=== PATIENT | male | born 1970 | race Two or more races ===

== ENCOUNTER 2016-09-23 | Outpatient (CLI) | payer MEDICAID | END 2016-09-23 15:45 | disposition home or self-care (01) | DX: R00.2 Palpitations (principal) ==

== ENCOUNTER 2016-10-11 11:42 | Emergency (ER) | payer MEDICAID ==
[2016-10-11] MEDS ORDERED: traMADol 50 MG TABLET PO STA (13:47)
[2016-10-11] MEDS ORDERED: traMADol 50 MG TABLET PO ONE (13:50)
== END 2016-10-11 14:02 | disposition home or self-care (01) ==
DX: M75.82 Other shoulder lesions, left shoulder (principal); R03.0 Elevated blood-pressure reading, without diagnosis of hypertension; E66.01 Morbid (severe) obesity due to excess calories; Z68.44 Body mass index [BMI] 60.0-69.9, adult

== ENCOUNTER 2016-10-19 20:04 | Outpatient (CLI) | payer MEDICAID | END 2016-10-19 20:05 | disposition home or self-care (01) | DX: R00.2 Palpitations (principal) ==

== ENCOUNTER 2016-11-14 12:46 | Outpatient (CLI) | payer MEDICAID | END 2016-11-14 12:47 | disposition home or self-care (01) | DX: Z85.850 Personal history of malignant neoplasm of thyroid (principal); Z98.890 Other specified postprocedural states ==

== ENCOUNTER 2017-01-02 14:30 | Outpatient (CLI) | payer MEDICAID | END 2017-01-02 14:31 | disposition home or self-care (01) | DX: G47.30 Sleep apnea, unspecified (principal); G47.8 Other sleep disorders; R06.83 Snoring; G47.10 Hypersomnia, unspecified ==

== ENCOUNTER 2017-02-07 14:36 | Outpatient (CLI) | payer MEDICAID ==
[2017-02-07 19:40] LABS: BILIRUBIN,TOTAL 0.6 mg/dL (0.2-1.0); BUN - BLOOD UREA NITROGEN 16 mg/dL (6-20); CARBON DIOXIDE - CO2 26 mmol/L (21-32); CHLORIDE 102 mmol/L (101-111); CHOL/HDL RATIO 4.5 (<5.0); CHOLESTEROL 156 mg/dL; CREATININE 0.8 mg/dL (0.6-1.2); GFR - MDRD 103 (>89); GLUCOSE 91 mg/dL (70-100); HDL CHOLESTEROL 35 mg/dL; MAGNESIUM 2.1 mg/dL (1.7-2.8); POTASSIUM 3.9 mmol/L (3.5-5.0); SODIUM 137 mmol/L (135-145); TOTAL PROTEIN 7.6 g/dL (6.7-8.2); TRIGLYCERIDES 81 mg/dL; VLDL CHOLESTEROL 16 mg/dL
[2017-02-07 19:52] LABS: BASOPHILS % (AUTO) 0.4 %; EOSINOPHILS # (AUTO) 0.1 10^3/uL (0.0-0.7); EOSINOPHILS % (AUTO) 1.3 %; HGB - HEMOGLOBIN 13.1 g/dL (14.0-18.0); LYMPHOCYTES # (AUTO) 2.6 10^3/uL (1.5-3.5); LYMPHOCYTES % (AUTO) 23.9 %; MEAN PLATELET VOLUME 9.3 fL (7.4-11.4); MONOCYTES % (AUTO) 8.8 %; NEUTROPHILS # (AUTO) 7.2 10^3/uL (1.5-6.6); NEUTROPHILS % (AUTO) 65.6 %; RED BLOOD COUNT 5.46 10^6/uL (4.70-6.10); RED CELL DISTRIBUTION WIDTH 16.1 % (12.0-15.0)
== END 2017-02-07 14:37 | disposition home or self-care (01) ==
LOC: LAB.N 14:36
PROVIDERS: ATTEND Internal Medicine Cardiovascular Disease
DX: I10 Essential (primary) hypertension (principal)
CPT/HCPCS: 36415; 80053; 80061; 83735; 84443; 85025

== ENCOUNTER 2017-03-03 15:55 | Outpatient (CLI) | payer MEDICAID ==
--- NOTE | 2017-03-04 00:01 | XRAY Report ---
EXAMS: BILATERAL FEET AND ANKLES EXAM DATE: 03/03/2017 04:18 PM. CLINICAL HISTORY: ANKLE/FOOT BILATERAL PAIN. COMPARISON: None. TECHNIQUE: 3 views each foot and ankle. FINDINGS: Right: Bones: Possible shrapnel within the middle phalanx of the right middle toe, presumably chronic. No ac [place] fractures or bone lesions. Right plantar calcaneal spur. Joints: Mild degenerative changes in the ankle.. No subluxations. Soft Tissues: Forefoot soft tissue swelling over the metatarsals. Left: Bones: Normal. No fractures or bone lesions. Joints: Mild degenerative changes in the ankle. No subluxations. Soft Tissues: Normal. No soft tissue swelling. IMPRESSION: 1. No acute osseous abnormality seen in either foot or ankle. 2. Right forefoot soft tissue swelling over the distal metatarsal region. 3. Mild degenerative changes in both ankles. 4. Possible shrapnel within the middle phalanx of the right middle toe, presumably chronic. [facility] Referring Provider Line: [phone] SITE ID: [id number]
--- NOTE | 2017-03-04 00:01 | XRAY Report ---
EXAMS: BILATERAL FEET AND ANKLES EXAM DATE: 03/03/2017 04:18 PM. CLINICAL HISTORY: ANKLE/FOOT BILATERAL PAIN. COMPARISON: None. TECHNIQUE: 3 views each foot and ankle. FINDINGS: Right: Bones: Possible shrapnel within the middle phalanx of the right middle toe, presumably chronic. No ac [place] fractures or bone lesions. Right plantar calcaneal spur. Joints: Mild degenerative changes in the ankle.. No subluxations. Soft Tissues: Forefoot soft tissue swelling over the metatarsals. Left: Bones: Normal. No fractures or bone lesions. Joints: Mild degenerative changes in the ankle. No subluxations. Soft Tissues: Normal. No soft tissue swelling. IMPRESSION: 1. No acute osseous abnormality seen in either foot or ankle. 2. Right forefoot soft tissue swelling over the distal metatarsal region. 3. Mild degenerative changes in both ankles. 4. Possible shrapnel within the middle phalanx of the right middle toe, presumably chronic. [facility] Referring Provider Line: [phone] SITE ID: [id number]
== END 2017-03-03 15:56 | disposition home or self-care (01) ==
LOC: DI.N 15:55
PROVIDERS: ATTEND Family Medicine
DX: M19.072 Primary osteoarthritis, left ankle and foot (principal); M19.071 Primary osteoarthritis, right ankle and foot; R22.41 Localized swelling, mass and lump, right lower limb

== ENCOUNTER 2017-07-13 14:45 | Outpatient (CLI) | payer MEDICAID ==
[2017-07-13 13:08] LABS: BASOPHILS # (AUTO) 0.1 10^3/uL (0.0-0.1); BASOPHILS % (AUTO) 0.7 %; EOSINOPHILS # (AUTO) 0.3 10^3/uL (0.0-0.7); HCT - HEMATOCRIT 40.3 % (42.0-52.0); LYMPHOCYTES # (AUTO) 2.7 10^3/uL (1.5-3.5); LYMPHOCYTES % (AUTO) 20.8 %; MEAN CORPUSCULAR HEMOGLOBIN 24.1 pg (27.0-31.0); MEAN CORPUSCULAR HGB CONC 32.3 g/dL (32.0-36.0); MEAN CORPUSCULAR VOLUME 74.6 fL (80.0-94.0); MEAN PLATELET VOLUME 9.1 fL (7.4-11.4); MONOCYTES # (AUTO) 1.1 10^3/uL (0.0-1.0); MONOCYTES % (AUTO) 8.7 %; NEUTROPHILS # (AUTO) 8.7 10^3/uL (1.5-6.6); NEUTROPHILS % (AUTO) 67.8 %; RED CELL DISTRIBUTION WIDTH 15.9 % (12.0-15.0); UNCORRECTED WHITE BLOOD COUNT 12.9 x10^3/uL; WHITE BLOOD COUNT 12.9 x10^3/uL (4.8-10.8)
[2017-07-13 13:26] LABS: BILIRUBIN,TOTAL 0.5 mg/dL (0.2-1.0); BUN - BLOOD UREA NITROGEN 17 mg/dL (6-20); CALCIUM 8.7 mg/dL (8.5-10.3); CARBON DIOXIDE - CO2 23 mmol/L (21-32); CHLORIDE 106 mmol/L (101-111); CREATININE 0.7 mg/dL (0.6-1.2); GFR - MDRD 120 (>89); GLUCOSE 102 mg/dL (70-100); POTASSIUM 4.2 mmol/L (3.5-5.0); SODIUM 137 mmol/L (135-145); TOTAL PROTEIN 7.6 g/dL (6.7-8.2)
[2017-07-13 13:38] LABS: THYROID STIMULATING HORMONE < 0.08 uIU/mL (0.34-5.60)
[2017-07-13 13:46] LABS: HEMOGLOBIN A1C 0.55 g/dL
== END 2017-07-13 14:46 | disposition home or self-care (01) ==
LOC: LAB.N 14:45
PROVIDERS: ATTEND Physician Assistant Medical
DX: R20.0 Anesthesia of skin (principal); N52.9 Male erectile dysfunction, unspecified; E66.9 Obesity, unspecified; E89.0 Postprocedural hypothyroidism
CPT/HCPCS: 36415; 80053; 83036; 84403; 84439; 84443; 85025

== ENCOUNTER 2017-08-25 13:33 | Outpatient (CLI) | payer MEDICAID ==
[2017-08-25 18:55] LABS: IMMATURE RETIC FRACTION 0.39; RED BLOOD COUNT 5.23 10^6/uL (4.70-6.10)
[2017-08-25 19:45] LABS: IRON 44 ug/dL (45-182); TOTAL IRON BINDING CAPACITY 302 ug/dL (250-450); TRANSFERRIN 216 mg/dL (180-329)
== END 2017-08-25 13:34 | disposition home or self-care (01) ==
LOC: LAB.N 13:33
PROVIDERS: ATTEND Physician Assistant Medical
DX: D64.9 Anemia, unspecified (principal)
CPT/HCPCS: 36415; 82728; 83540; 84466; 85044

== ENCOUNTER 2017-09-18 13:29 | Emergency (ER) | payer MEDICAID ==
[2017-09-18 13:37] VITALS: BP 154/78
[2017-09-18] MEDS ORDERED: IBUPROFEN 800 MG TABLET PO STA (13:49)
--- NOTE | 2017-09-18 13:51 | ED Physician Documentation ---
PD HPI LOWER EXT INJURY - Stated complaint Stated Complaint: L ANKLE PX - Chief complaint Chief Complaint: Ext Problem - History obtained from History obtained from: Patient - History of Present Illness PD HPI LOW EXT INJURY LOCATION: Other (Without specific injury he developed medial and anterior left ankle pain starting yesterday morning that hurts more when he is trying to walk but is still painful at rest. Says he had a similar episode in the other ankle about 3 years ago without a specific diagnosis. There was no injury. No fevers.) Review of Systems Constitutional: denies: Fever, Chills Respiratory: reports: Reviewed and negative GI: reports: Reviewed and negative : reports: Reviewed and negative PD PAST MEDICAL HISTORY - Past Medical History Past Medical History: Yes Cardiovascular: Hypertension Respiratory: Asthma Neuro: None Psych: Anxiety Musculoskeletal: Osteoarthritis, Chronic back pain, Other - Past Surgical History Past Surgical History: Yes - Present Medications Home Medications: Ambulatory Orders Medication Instructions Recorded Confirmed Liothyronine [Cytomel] 2 mg PO DAILY 07/25/15 09/18/17 Levothyroxine [Synthroid] 275 mcg PO DAILY 10/11/16 09/18/17 Cyclobenzaprine [Flexeril] 10 mg PO BID PRN 09/18/17 09/18/17 Meloxicam [Mobic] 7.5 mg PO BIDWM PRN #15 tablet 09/18/17 - Allergies Allergies/Adverse Reactions: Allergies Allergy/AdvReac Type Severity Reaction Status Date / Time hydrocodone Allergy Unknown Verified 09/18/17 13:39 morphine Allergy Unknown Verified 09/18/17 13:39 oxycodone Allergy Unknown Verified 09/18/17 13:39 - Social History Does the pt smoke?: No Smoking Status: Never smoker Does the pt drink ETOH?: No Does the pt have substance abuse?: No - Immunizations Immunizations are current?: Yes - POLST Patient has POLST: No PD ED PE NORMAL - Vitals Vital signs reviewed: Yes - General General: Alert and oriented X 3, No acute distress - Extremities Extremities: Other (Left ankle is not warm or red, he is tender to the medial malleolus, no calf tenderness or swelling. Mild anterior joint line tenderness , no lateral tenderness or tenderness over the calcaneus or Achilles. Passive range of motion is relatively but not completely painless.) - Neuro Neuro: Alert and oriented X 3, Normal speech Results - Vitals Vitals: Vital Signs - 24 hr 09/18/17 13:32 Temperature 36.2 C L Heart Rate 80 Respiratory 19 Rate Blood Pressure 154/78 H O2 Saturation 98 Oxygen O2 Source Room air - Labs Labs: Laboratory Tests 09/18/17 09/18/17 14:10 14:10 WBC 13.9 H RBC 5.36 Hgb 13.1 L Hct 40.2 L MCV 75.0 L MCH 24.4 L MCHC 32.5 RDW 15.5 H Plt Count 209 MPV 8.4 Neut # 10.3 H Lymph # 2.3 [place] # 1.1 H Eos # 0.2 Baso # 0.1 Absolute Nucleated RBC 0.00 Nucleated RBC % 0.0 Sodium 139 Potassium 3.8 Chloride 101 Carbon Dioxide 29 Anion Gap 9.0 BUN 15 Creatinine 0.8 Estimated GFR (MDRD) 103 Glucose 102 H Uric Acid 7.3 H Calcium 8.9 Total Bilirubin 0.7 AST 23 ALT 29 Alkaline Phosphatase 55 Total Protein 8.1 Albumin 4.0 Globulin 4.1 Albumin/Globulin Ratio 1.0 Lipase 22 - Rads (name of study) 3v L ankle Radiology: EMP read contemporaneously (Degenerative changes without fracture) PD MEDICAL DECISION MAKING - ED course ED course: 46-year-old gentleman presents with unexplained 36 hours of left ankle pain. Clinically not really consistent with a septic joint and he is afebrile. Could be gout, he is a mildly elevated uric acid. Note made of the leukocytosis. I was discussing that with the patient and potentially an arthrocentesis which he refused noting that he has a chronic leukocytosis and looking back at old records that is certainly true. He understands that if he worsens or runs a fever he will need to return for reevaluation. Departure - Departure Disposition: Home, Self Care Clinical Impression: Left ankle pain Qualifiers: Chronicity: acute Qualified Code(s): M25.572 - Pain in left ankle and joints of left foot Condition: Good Record reviewed to determine appropriate education?: Yes Follow-Up: [facility] [Provider Group] Prescriptions: Meloxicam [Mobic] 7.5 mg PO BIDWM PRN #15 tablet PRN Reason: Pain Comments: As discussed, return immediately if you worsen or run a fever.
[2017-09-18 14:16] LABS: BASOPHILS # (AUTO) 0.1 10^3/uL (0.0-0.1); BASOPHILS % (AUTO) 0.4 %; EOSINOPHILS # (AUTO) 0.2 10^3/uL (0.0-0.7); EOSINOPHILS % (AUTO) 1.1 %; HGB - HEMOGLOBIN 13.1 g/dL (14.0-18.0); LYMPHOCYTES # (AUTO) 2.3 10^3/uL (1.5-3.5); LYMPHOCYTES % (AUTO) 16.8 %; MEAN CORPUSCULAR HEMOGLOBIN 24.4 pg (27.0-31.0); MEAN CORPUSCULAR HGB CONC 32.5 g/dL (32.0-36.0); MEAN PLATELET VOLUME 8.4 fL (7.4-11.4); MONOCYTES # (AUTO) 1.1 10^3/uL (0.0-1.0); MONOCYTES % (AUTO) 7.9 %; NEUTROPHILS # (AUTO) 10.3 10^3/uL (1.5-6.6); NEUTROPHILS % (AUTO) 73.8 %; PLT - PLATELET COUNT 209 10^3/uL (130-450); RED BLOOD COUNT 5.36 10^6/uL (4.70-6.10); RED CELL DISTRIBUTION WIDTH 15.5 % (12.0-15.0); WHITE BLOOD COUNT 13.9 x10^3/uL (4.8-10.8)
[2017-09-18 14:28] LABS: BILIRUBIN,TOTAL 0.7 mg/dL (0.2-1.0); CALCIUM 8.9 mg/dL (8.5-10.3); CREATININE 0.8 mg/dL (0.6-1.2); TOTAL PROTEIN 8.1 g/dL (6.7-8.2); URIC ACID 7.3 mg/dL (2.6-7.2)
--- NOTE | 2017-09-18 14:29 | XRAY Report ---
EXAM: LEFT ANKLE RADIOGRAPHY EXAM DATE: 09/18/2017 02:06 PM. CLINICAL HISTORY: Ankle pain. COMPARISON: 03/03/2017. TECHNIQUE: 3 views. FINDINGS: Bones: No acute fracture. Joints: There is pes planus. Similar to previous. Soft Tissues: There is a moderate degree of ossification located posterior to the talus. There is spu rring of the midfoot. There is diffuse soft tissue swelling. IMPRESSION: Soft tissue swelling with spurring and pes planus. No acute fracture. [facility] Referring Provider Line: [phone] SITE ID: [id number]
== END 2017-09-18 14:51 | disposition home or self-care (01) ==
LOC: ED 13:29
DX: M25.572 Pain in left ankle and joints of left foot (principal); D72.829 Elevated white blood cell count, unspecified; I10 Essential (primary) hypertension
CPT/HCPCS: 36415; 73610; 80053; 83690; 84550; 85025; 99283; A9270

== ENCOUNTER 2017-12-25 12:56 | Emergency (ER) | payer MEDICAID ==
--- NOTE | 2017-12-25 13:31 | XRAY Report ---
EXAM: CHEST RADIOGRAPHY EXAM DATE: 12/25/2017 01:14 PM. CLINICAL HISTORY: Productive cough, fevers. COMPARISON: 07/25/2015 TECHNIQUE: 2 views. FINDINGS: Lungs/Pleura: No focal opacities evident. No pleural effusion. No pneumothorax. Normal volumes. Mediastinum: Heart and mediastinal contours are unremarkable. Other: No acute findings compared with 07/25/2015 IMPRESSION: Negative 2-view chest radiography. [facility] Referring Provider Line: [phone] SITE ID: [id number]
--- NOTE | 2017-12-25 14:35 | ED Physician Documentation ---
PD HPI URI - Stated complaint Stated Complaint: CHEST CONGESTION - Chief complaint Chief Complaint: Resp - History obtained from History obtained from: Patient - History of Present Illness Timing - onset: How many weeks ago (2-3) Timing duration: Weeks Timing details: Gradual onset, Still present, Waxing and waning Associated symptoms: Productive cough, Dyspnea. No: Fever, Hemoptysis, Chest pain, Bilateral edema Contributing factors: No: Sick contact, Travel, Immunocompromised, COPD / asthma Similar symptoms before: Has not had sx before Review of Systems Constitutional: denies: Fever, Chills Nose: reports: Congestion Throat: denies: Sore throat Cardiac: denies: Chest pain / pressure Respiratory: reports: Cough. denies: Wheezing GI: denies: Nausea, Vomiting, Diarrhea Skin: denies: Rash, Lesions PD PAST MEDICAL HISTORY - Past Medical History Past Medical History: Yes Cardiovascular: Hypertension Respiratory: Asthma Neuro: None Psych: Anxiety Musculoskeletal: Osteoarthritis, Chronic back pain, Other - Past Surgical History Past Surgical History: Yes - Present Medications Home Medications: Ambulatory Orders Medication Instructions Recorded Confirmed Liothyronine [Cytomel] 2 mg PO DAILY 07/25/15 09/18/17 Levothyroxine [Synthroid] 275 mcg PO DAILY 10/11/16 09/18/17 Cyclobenzaprine [Flexeril] 10 mg PO BID PRN 09/18/17 09/18/17 Albuterol Sulf [Ventolin Hfa 1 - 2 puffs INH Q4HR PRN #1 inhaler 12/25/17 Inhaler] Benzonatate [Tessalon] 100 mg PO TID PRN #25 capsule 12/25/17 Dexamethasone [Decadron] 4 mg PO DAILY #7 tablet 12/25/17 Doxycycline Monohydrate 100 mg PO BID #14 tablet 12/25/17 - Allergies Allergies/Adverse Reactions: Allergies Allergy/AdvReac Type Severity Reaction Status Date / Time hydrocodone Allergy Unknown Verified 12/25/17 13:01 morphine Allergy Unknown Verified 12/25/17 13:01 oxycodone Allergy Unknown Verified 12/25/17 13:01 - Social History Does the pt smoke?: No Smoking Status: Never smoker Does the pt drink ETOH?: No Does the pt have substance abuse?: No - Immunizations Immunizations are current?: Yes - POLST Patient has POLST: No PD ED PE NORMAL - Vitals Vital signs reviewed: Yes - General General: Alert and oriented X 3, No acute distress, Well developed/nourished - HEENT HEENT: Ears normal, Pharynx benign - Neck Neck: Supple, no meningeal sign, No adenopathy - Cardiac Cardiac: RRR, No murmur - Respiratory Respiratory: Clear bilaterally - Abdomen Abdomen: Soft, Non tender - Derm Derm: Normal color, Warm and dry - Extremities Extremities: No tenderness to palpate, No edema, No calf tenderness / cord - Neuro Neuro: Alert and oriented X 3, No motor deficit, Normal speech Results - Vitals Vitals: Oxygen O2 Source Room air - Rads (name of study) chest Radiology: Prelim report reviewed (no infiltrates) PD MEDICAL DECISION MAKING - ED course Complexity details: reviewed results, considered differential, d/w patient Departure - Departure Disposition: 01 Home, Self Care Clinical Impression: Persistent cough Upper respiratory infection Qualifiers: URI type: unspecified URI Qualified Code(s): J06.9 - Acute upper respiratory infection, unspecified Clinical Impression: (Ruled Out): Pneumonia Condition: Stable Record reviewed to determine appropriate education?: Yes Instructions: ED Upper Resp Infec Abx Tx Prescriptions: Albuterol Sulf [Ventolin Hfa Inhaler] 1 - 2 puffs INH Q4HR PRN #1 inhaler PRN Reason: Shortness Of Air/Wheezing Benzonatate [Tessalon] 100 mg PO TID PRN #25 capsule PRN Reason: Cough Dexamethasone [Decadron] 4 mg PO DAILY #7 tablet Doxycycline Monohydrate 100 mg PO BID #14 tablet Comments: Drink lots of fluids. Continue your albuterol inhaler 2 puffs 4 times a day and also added times as needed. Decadron steroid for bronchial inflammation daily for the next week. Doxycycline twice daily for a week for possible bacterial infection. Add Tessalon if needed for cough. Continue the honey ENT to help with the cough as well. Recheck if not improving over the next several days to week. Discharge Date/Time: 12/25/17 15:11
[2017-12-25] MEDS ORDERED: ALBUTEROL NEB 2.5 MG/3 ML INH STA (14:44)
[2017-12-25] MEDS ORDERED: BENZONATATE 100 MG CAPSULE PO STA (14:44)
[2017-12-25] MEDS ORDERED: DEXAMETHASONE 10 MG/ML VIAL PO STA (14:44)
[2017-12-25] MEDS ORDERED: DOXYCYCLINE 100 MG TABLET PO STA (14:44)
[2017-12-25 15:12] VITALS: BP 152/89
== END 2017-12-25 15:11 | disposition home or self-care (01) ==
LOC: ED 12:56
DX: R05 Cough (principal); J06.9 Acute upper respiratory infection, unspecified; I10 Essential (primary) hypertension
CPT/HCPCS: 71046; 94640; 99283; A9270

== ENCOUNTER 2018-02-02 13:01 | Outpatient (CLI) | payer MEDICAID ==
[2018-02-02 18:54] LABS: BASOPHILS # (AUTO) 0.1 10^3/uL (0.0-0.1); BASOPHILS % (AUTO) 0.6 %; EOSINOPHILS # (AUTO) 0.1 10^3/uL (0.0-0.7); EOSINOPHILS % (AUTO) 1.1 %; HGB - HEMOGLOBIN 12.8 g/dL (14.0-18.0); LYMPHOCYTES # (AUTO) 2.9 10^3/uL (1.5-3.5); LYMPHOCYTES % (AUTO) 24.1 %; MEAN CORPUSCULAR HEMOGLOBIN 23.7 pg (27.0-31.0); MEAN CORPUSCULAR HGB CONC 31.1 g/dL (32.0-36.0); MEAN CORPUSCULAR VOLUME 76.2 fL (80.0-94.0); MONOCYTES # (AUTO) 1.1 10^3/uL (0.0-1.0); NEUTROPHILS # (AUTO) 7.8 10^3/uL (1.5-6.6); NEUTROPHILS % (AUTO) 65.2 %; PLT - PLATELET COUNT 245 10^3/uL (130-450); RED BLOOD COUNT 5.39 10^6/uL (4.70-6.10); RED CELL DISTRIBUTION WIDTH 16.4 % (12.0-15.0); WHITE BLOOD COUNT 11.9 x10^3/uL (4.8-10.8)
[2018-02-02 19:20] LABS: CALCIUM 8.9 mg/dL (8.5-10.3); PHOSPHORUS 3.8 mg/dL (2.5-4.6)
[2018-02-02 19:26] LABS: FERRITIN 103.2 ng/mL (23.9-336.2)
== END 2018-02-02 13:02 | disposition home or self-care (01) ==
LOC: LAB.N 13:01
PROVIDERS: ATTEND Physician Assistant Medical
DX: E55.9 Vitamin D deficiency, unspecified (principal); R10.9 Unspecified abdominal pain; M1A.0790 Idiopathic chronic gout, unspecified ankle and foot, without tophus (tophi); R53.83 Other fatigue; F41.8 Other specified anxiety disorders; M25.579 Pain in unspecified ankle and joints of unspecified foot; G89.4 Chronic pain syndrome; M19.012 Primary osteoarthritis, left shoulder; Z68.44 Body mass index [BMI] 60.0-69.9, adult; M54.9 Dorsalgia, unspecified; D50.9 Iron deficiency anemia, unspecified
CPT/HCPCS: 36415; 82306; 82310; 82728; 83540; 83970; 84100; 84466; 85025

== ENCOUNTER 2018-03-07 16:46 | Outpatient (CLI) | payer MEDICAID ==
--- NOTE | 2018-03-08 11:42 | Ultrasound Report ---
Procedure Date: 03/07/2018 Accession Number: [id number] / [id number] Procedure: US - Abdomen Limited CPT Code: FULL RESULT: EXAM: Abdomen Limited DATE: 03/07/2018 5:53 PM CLINICAL HISTORY: ABDOMINAL PAIN,CHRONIC COMPARISON: None. TECHNIQUE: Real-time scanning was performed with static images obtained. FINDINGS: Liver: Increased both in size and echotexture, 23.6 cm. Main portal vein flow: Hepatopetal. Gallbladder: No stones, wall thickening, or sonographic Magdaleno's sign. Biliary System: CBD measures 5.5 mm. No intrahepatic or extrahepatic ductal dilatation. Free fluid: None. Right kidney: 11.1 cm longitudinally. Unremarkable. IMPRESSION: Hepatomegaly with heterogeneous increased hepatic echotexture suggesting fatty infiltration. No cholelithiasis or cholecystitis. [facility]
== END 2018-03-07 16:47 | disposition home or self-care (01) ==
LOC: DI 16:46
PROVIDERS: ATTEND Physician Assistant Medical
DX: R16.0 Hepatomegaly, not elsewhere classified (principal); R10.9 Unspecified abdominal pain
CPT/HCPCS: 76705

== ENCOUNTER 2018-05-17 15:11 | Outpatient (CLI) | payer MEDICAID ==
[2018-05-17 15:59] LABS: THYROID STIMULATING HORMONE < 0.08 uIU/mL (0.34-5.60)
[2018-05-17 16:47] LABS: FREE T4 (FREE THYROXINE) 1.47 ng/dL (0.58-1.64)
== END 2018-05-17 15:12 | disposition home or self-care (01) ==
LOC: LAB 15:11
PROVIDERS: ATTEND Internal Medicine Endocrinology, Diabetes & Metabolism
DX: E89.0 Postprocedural hypothyroidism (principal)
CPT/HCPCS: 36415; 84439; 84443

== ENCOUNTER 2018-09-09 13:17 | Emergency (ER) | payer MEDICAID ==
[2018-09-09] MEDS ORDERED: IPRATROPIUM/ALBUTEROL 3 ML NEB INH STA (13:31)
--- NOTE | 2018-09-09 13:36 | ED Physician Documentation ---
PD HPI DYSPNEA - Stated complaint Stated Complaint: SOA/COUGH - Chief complaint Chief Complaint: Resp - History obtained from History obtained from: Patient - History of Present Illness Timing - onset: Other (He has been sick for about a month with cough productive of white sputum and wheezing finding only intermittent relief with his pro-air inhaler. There is no associated chest pain, fevers, or pedal edema. He has a history of asthma, takes Pro Air daily and has been using it every 4 hours during this illness.) Review of Systems Constitutional: denies: Fever, Chills Nose: denies: Rhinorrhea / runny nose Throat: denies: Sore throat Cardiac: denies: Chest pain / pressure, Palpitations, Pedal edema, Calf pain Respiratory: reports: Dyspnea, Cough, Wheezing. denies: Hemoptysis GI: denies: Abdominal Pain PD PAST MEDICAL HISTORY - Past Medical History Cardiovascular: Hypertension Respiratory: Asthma Psych: Anxiety Musculoskeletal: Osteoarthritis, Chronic back pain, Other - Past Surgical History Past Surgical History: Yes - Present Medications Home Medications: Ambulatory Orders Medication Instructions Recorded Confirmed Liothyronine [Cytomel] 2 mg PO DAILY 07/25/15 09/18/17 Levothyroxine [Synthroid] 275 mcg PO DAILY 10/11/16 09/18/17 Cyclobenzaprine [Flexeril] 10 mg PO BID PRN 09/18/17 09/18/17 Albuterol Sulf [Ventolin Hfa 1 - 2 puffs INH Q4HR PRN #1 inhaler 12/25/17 Inhaler] Benzonatate [Tessalon] 100 mg PO TID PRN #25 capsule 12/25/17 Dexamethasone [Decadron] 4 mg PO DAILY #7 tablet 12/25/17 Doxycycline Monohydrate 100 mg PO BID #14 tablet 12/25/17 guaiFENesin/CODEINE [Robitussin AC] 5 - 10 ml PO Q6H PRN #120 ml 09/09/18 predniSONE [Deltasone] 20 mg PO [id number] #21 tab 09/09/18 - Allergies Allergies/Adverse Reactions: Allergies Allergy/AdvReac Type Severity Reaction Status Date / Time hydrocodone Allergy Unknown Verified 09/09/18 13:25 morphine Allergy Unknown Verified 09/09/18 13:25 oxycodone Allergy Unknown Verified 09/09/18 13:25 - Social History Does the pt smoke?: No Smoking Status: Never smoker Does the pt drink ETOH?: No Does the pt have substance abuse?: No - Immunizations Immunizations are current?: Yes - POLST Patient has POLST: No PD ED PE NORMAL - Vitals Vital signs reviewed: Yes - General General: Alert and oriented X 3, Other (Audible wheeze at the bedside) - Neck Neck: Supple, no meningeal sign, No bony TTP - Cardiac Cardiac: RRR, No murmur - Respiratory Respiratory: Other (Mildly tachypneic with wheezes throughout mildly diminished air motion) - Extremities Extremities: No edema, No calf tenderness / cord - Neuro Neuro: Alert and oriented X 3, Normal speech Results - Vitals Vitals: Vital Signs - 24 hr 09/09/18 09/09/18 09/09/18 13:22 13:44 14:00 Temperature 36.6 C Heart Rate 77 73 70 Respiratory 32 H 20 20 Rate Blood Pressure 147/85 H O2 Saturation 99 Oxygen O2 Source Room air - Rads (name of study) 2v chest Radiology: EMP read contemporaneously (NAD) PD MEDICAL DECISION MAKING - ED course ED course: This is a 47-year-old gentleman with underlying asthma presents with an asthma exacerbation related to underlying viral illness. After 2 breathing treatments his lungs were almost clear with only mild residual rhonchi. There was no pneumonia on x-ray. Departure - Departure Disposition: 01 Home, Self Care Clinical Impression: Upper respiratory infection Qualifiers: URI type: unspecified viral URI Qualified Code(s): J06.9 - Acute upper respiratory infection, unspecified Asthma Qualifiers: Asthma severity: moderate Asthma persistence: persistent Asthma complication type: with acute exacerbation Qualified Code(s): J45.41 - Moderate persistent asthma with (acute) exacerbation Condition: Good Record reviewed to determine appropriate education?: Yes Instructions: Asthma Dc Prescriptions: guaiFENesin/CODEINE [Robitussin AC] 5 - 10 ml PO Q6H PRN #120 ml PRN Reason: Cough predniSONE [Deltasone] 20 mg PO [id number] #21 tab Comments: Call your doctor to arrange a follow-up appointment, make the next available appointment. In the interim, return anytime if worse or if new symptoms develop. Your blood pressure was elevated today on check into the emergency department. This does not mean that you have hypertension, it is a common phenomenon to come to the emergency department and have elevated blood pressure. I recommend that you see your primary care physician within the week to have it rechecked when you are feeling better.
[2018-09-09] MEDS ORDERED: ALBUTEROL NEB 2.5 MG/3 ML INH STA (13:58)
[2018-09-09] MEDS ORDERED: ALBUTEROL NEB 2.5 MG/3 ML INH ONE (14:00)
[2018-09-09] MEDS ORDERED: predniSONE 20 MG TABLET PO STA (14:39)
--- NOTE | 2018-09-09 14:57 | XRAY Report ---
Reason: SOA with exertion, cough Procedure Date: 09/09/2018 Accession Number: [id number] / [id number] Procedure: XR - Chest 2 View X-Ray CPT Code: 32389 FULL RESULT: EXAM: CHEST RADIOGRAPHY EXAM DATE: 09/09/2018 02:34 PM. CLINICAL HISTORY: SOA with exertion, cough. COMPARISON: CHEST 2 VIEW 12/25/2017 1:04 PM. TECHNIQUE: 2 views. FINDINGS: Lungs/Pleura: No significant change. No consolidation or focal pneumonia. Negative for pleural effusion and pneumothorax. Mediastinum: Heart size is normal. Trachea is midline. Other: None. IMPRESSION: Negative for an acute cardiopulmonary abnormality. [facility]
[2018-09-09 15:19] VITALS: BP 121/67
== END 2018-09-09 15:17 | disposition home or self-care (01) ==
LOC: ED 13:17
DX: J06.9 Acute upper respiratory infection, unspecified (principal); J45.41 Moderate persistent asthma with (acute) exacerbation; I10 Essential (primary) hypertension
CPT/HCPCS: 71046; 94640; 99283; J7512

== ENCOUNTER 2018-09-15 13:39 | Emergency (ER) | payer MEDICAID ==
[2018-09-15] MEDS ORDERED: IPRATROPIUM/ALBUTEROL 3 ML NEB INH STA (13:53)
--- NOTE | 2018-09-15 14:00 | ED Physician Documentation ---
PD HPI DYSPNEA - Stated complaint Stated Complaint: SOA - Chief complaint Chief Complaint: Resp - History obtained from History obtained from: Patient - History of Present Illness Timing - onset: Other (47-year-old gentleman with history of asthma. Was seen about a week ago with a lot of wheezing and felt better after treatments and was put on steroids but never really improved any further. He is having a lot of dyspnea especially on exertion that is unrelieved by his inhaler. He denies chest pain or pedal edema.) Review of Systems Ten Systems: 10 systems reviewed and negative Constitutional: denies: Fever, Chills Cardiac: denies: Chest pain / pressure, Palpitations, Pedal edema, Calf pain Respiratory: reports: Dyspnea, Cough. denies: Hemoptysis, Wheezing PD PAST MEDICAL HISTORY - Past Medical History Cardiovascular: Hypertension Respiratory: Asthma Psych: Anxiety Musculoskeletal: Osteoarthritis, Chronic back pain, Other - Past Surgical History Past Surgical History: Yes - Present Medications Home Medications: Ambulatory Orders Medication Instructions Recorded Confirmed Liothyronine [Cytomel] 2 mg PO DAILY 07/25/15 09/15/18 Levothyroxine [Synthroid] 275 mcg PO DAILY 10/11/16 09/15/18 Cyclobenzaprine [Flexeril] 10 mg PO BID PRN 09/18/17 09/15/18 Albuterol Sulf [Ventolin Hfa 1 - 2 puffs INH Q4HR PRN #1 inhaler 12/25/17 09/15/18 Inhaler] Benzonatate [Tessalon] 100 mg PO TID PRN #25 capsule 12/25/17 09/15/18 Dexamethasone [Decadron] 4 mg PO DAILY #7 tablet 12/25/17 09/15/18 Doxycycline Monohydrate 100 mg PO BID #14 tablet 12/25/17 09/15/18 guaiFENesin/CODEINE [Robitussin AC] 5 - 10 ml PO Q6H PRN #120 ml 09/09/18 1 predniSONE [Deltasone] 20 mg PO [id number] #21 tab 09/09/18 09/15/18 - Allergies Allergies/Adverse Reactions: Allergies Allergy/AdvReac Type Severity Reaction Status Date / Time hydrocodone Allergy Unknown Verified 09/09/18 13:25 morphine Allergy Unknown Verified 09/09/18 13:25 oxycodone Allergy Unknown Verified 09/09/18 13:25 - Social History Does the pt smoke?: No Smoking Status: Never smoker Does the pt drink ETOH?: No Does the pt have substance abuse?: No - Family History Family history: reports: Non contributory - Immunizations Immunizations are current?: Yes - POLST Patient has POLST: No PD ED PE NORMAL - Vitals Vital signs reviewed: Yes (Hypertensive, sats and heart rate okay. He is a little tachypneic) - General General: Alert and oriented X 3, No acute distress, Other (BMI near 70) - HEENT HEENT: PERRL, EOMI - Neck Neck: Supple, no meningeal sign, No bony TTP - Cardiac Cardiac: RRR, No murmur - Respiratory Respiratory: Other (Slightly labored, diminished and wheezy especially at the bases) - Abdomen Abdomen: Soft, Non tender - Back Back: No CVA TTP, No spinal TTP - Derm Derm: Normal color, Warm and dry - Extremities Extremities: No edema, No calf tenderness / cord - Neuro Neuro: Alert and oriented X 3, Normal speech Results - Vitals Vitals: Vital Signs - 24 hr 09/15/18 09/15/18 09/15/18 13:43 14:10 14:16 Temperature 36.5 C 36.1 C L Heart Rate 84 90 66 Respiratory 24 16 16 Rate Blood Pressure 156/87 H 130/77 O2 Saturation 97 100 Oxygen O2 Source Room air - EKG (time done) 1406 Rate: Rate (enter#) (77) Rhythm: NSR Edon: Normal Intervals: Normal AL QRS: Normal Ischemia: Normal ST segments, Non specific changes (flat T arsh I/L). No: ST elevation c/w ischemia, ST elevation c/w repol Computer interpretation: Agree with computer - Labs Labs: Laboratory Tests 09/15/18 09/15/18 09/15/18 14:15 14:20 14:20 WBC 16.3 H RBC 4.76 Hgb 11.8 L Hct 35.4 L MCV 74.4 L MCH 24.8 L MCHC 33.3 RDW 15.7 H Plt Count 188 MPV 8.6 Neut # (Auto) 12.7 H Lymph # (Auto) 1.9 [place] # (Auto) 1.4 H Eos # (Auto) 0.1 Baso # (Auto) 0.2 H Absolute Nucleated RBC 0.00 Nucleated RBC % 0.0 D-Dimer < 200.0 L Sodium 137 Potassium 3.3 L Chloride 104 Carbon Dioxide 26 Anion Gap 7.0 BUN 20 Creatinine 0.7 Estimated GFR (MDRD) 120 Glucose 97 Calcium 8.3 L Total Bilirubin 0.8 AST 53 H ALT 139 H Alkaline Phosphatase 51 Troponin I B-Natriuretic Peptide Total Protein 7.7 Albumin 3.7 Globulin 4.0 Albumin/Globulin Ratio 0.9 L Lipase 27 09/15/18 09/15/18 14:20 15:06 WBC RBC Hgb Hct MCV MCH MCHC RDW Plt Count MPV Neut # (Auto) Lymph # (Auto) [place] # (Auto) Eos # (Auto) Baso # (Auto) Absolute Nucleated RBC Nucleated RBC % D-Dimer Sodium Potassium Chloride Carbon Dioxide Anion Gap BUN Creatinine Estimated GFR (MDRD) Glucose Calcium Total Bilirubin AST ALT Alkaline Phosphatase Troponin I < 0.04 B-Natriuretic Peptide 163 H Total Protein Albumin Globulin Albumin/Globulin Ratio Lipase - Rads (name of study) 2v chest Radiology: EMP read contemporaneously (CHF) PD MEDICAL DECISION MAKING - ED course ED course: 47-year-old gentleman with continued dyspnea. Recently diagnosed with asthma and on prednisone. Today looks a little more fluid overloaded on chest x-ray. He has a history of a valvular abnormality and is followed by a swatch clerk in [facility]. He says that recently, over the last month or so he had a repeat echocardiogram showing a resolution of his valvular abnormality. He was placed on chlorthalidone by the swatch clerk but stopped it about a week ago on the advice of his PCP who wanted more blood pressure checks to confirm that he is truly hypertensive. It would seem that the timing would corroborate with his worsening and he probably went into a little bit of congestive heart failure that was managed by the chlorthalidone. He did well after some diuretic here and ambulated in the hallway without evidence of hypoxemia, never went below 97% with ambulation and did not become significantly tachycardic. Departure - Departure Disposition: 01 Home, Self Care Clinical Impression: Congestive heart failure Qualifiers: Heart failure type: unspecified Heart failure chronicity: acute Qualified Code(s): I50.9 - Heart failure, unspecified Hypertension Qualifiers: Hypertension type: essential hypertension Qualified Code(s): I10 - Essential (primary) hypertension Condition: Good Record reviewed to determine appropriate education?: Yes Instructions: ED CHF General Comments: Eat a low-salt diet. Restart your chlorthalidone and potassium supplement. Follow-up with your swatch clerk within the week, call Monday for an laura ointment. Return if worse.
[2018-09-15 14:30] LABS: BASOPHILS # (AUTO) 0.2 10^3/uL (0.0-0.1); BASOPHILS % (AUTO) 0.9 %; EOSINOPHILS # (AUTO) 0.1 10^3/uL (0.0-0.7); EOSINOPHILS % (AUTO) 0.9 %; HGB - HEMOGLOBIN 11.8 g/dL (14.0-18.0); LYMPHOCYTES # (AUTO) 1.9 10^3/uL (1.5-3.5); LYMPHOCYTES % (AUTO) 11.9 %; MEAN CORPUSCULAR HEMOGLOBIN 24.8 pg (27.0-31.0); MEAN CORPUSCULAR HGB CONC 33.3 g/dL (32.0-36.0); MEAN CORPUSCULAR VOLUME 74.4 fL (80.0-94.0); MEAN PLATELET VOLUME 8.6 fL (7.4-11.4); MONOCYTES # (AUTO) 1.4 10^3/uL (0.0-1.0); MONOCYTES % (AUTO) 8.6 %; NEUTROPHILS # (AUTO) 12.7 10^3/uL (1.5-6.6); NEUTROPHILS % (AUTO) 77.7 %; PLT - PLATELET COUNT 188 10^3/uL (130-450); RED BLOOD COUNT 4.76 10^6/uL (4.70-6.10); RED CELL DISTRIBUTION WIDTH 15.7 % (12.0-15.0); WHITE BLOOD COUNT 16.3 x10^3/uL (4.8-10.8)
[2018-09-15 14:44] LABS: ALBUMIN 3.7 g/dL (3.2-5.5); ALBUMIN/GLOBULIN RATIO 0.9 (1.0-2.2); BILIRUBIN,TOTAL 0.8 mg/dL (0.2-1.0); CALCIUM 8.3 mg/dL (8.5-10.3); CREATININE 0.7 mg/dL (0.6-1.2); TOTAL PROTEIN 7.7 g/dL (6.7-8.2)
--- NOTE | 2018-09-15 14:50 | XRAY Report ---
Reason: cough/wheezing Procedure Date: 09/15/2018 Accession Number: [id number] / [id number] Procedure: XR - Chest 2 View X-Ray CPT Code: 43836 FULL RESULT: EXAM: CHEST RADIOGRAPHY EXAM DATE: 09/15/2018 02:19 PM. CLINICAL HISTORY: Difficulty breathing. Cough, asthma. COMPARISON: CHEST 2 VIEW 09/09/2018 2:27 PM. TECHNIQUE: 2 views. FINDINGS: Lungs/Pleura: Diffuse hazy prominence of lung markings. No localized infiltrate, consolidation, effusion, or pneumothorax. Mediastinum: Mild cardiomegaly, increased since previous study. Diffuse vascular fullness with cephalic redistribution. Other: Degenerative changes. IMPRESSION: Congestive failure. RADIA
[2018-09-15] MEDS ORDERED: NITROGLYCERIN 2% PASTE TOP STA (15:04)
[2018-09-15] MEDS ORDERED: FUROSEMIDE 20 MG TABLET PO STA (15:07)
[2018-09-15] MEDS ORDERED: POTASSIUM BICARB 25 MEQ TABLET PO STA (15:30)
[2018-09-15 16:05] VITALS: BP 154/95
== END 2018-09-15 16:06 | disposition home or self-care (01) ==
LOC: ED 13:39
DX: I11.0 Hypertensive heart disease with heart failure (principal); I50.9 Heart failure, unspecified; J45.909 Unspecified asthma, uncomplicated
CPT/HCPCS: 36415; 71046; 80053; 83690; 83880; 84484; 85025; 85379; 93005; 94640; 99283; 99284; A9270

== ENCOUNTER 2018-09-24 19:00 | Outpatient (CLI) | payer MEDICAID | END 2018-09-24 23:59 | LOC: LAB.R 19:00 | PROVIDERS: ATTEND Physician Assistant Medical | DX: I10 Essential (primary) hypertension (principal); D50.9 Iron deficiency anemia, unspecified | CPT/HCPCS: 82274 ==

== ENCOUNTER 2018-09-25 08:00 | Outpatient (CLI) | payer MEDICAID ==
[2018-09-25 18:55] LABS: RED BLOOD COUNT 5.5 10^6/uL (4.70-6.10)
[2018-09-25 19:18] LABS: CALCIUM 9.1 mg/dL (8.5-10.3); CREATININE 0.9 mg/dL (0.6-1.2)
== END 2018-09-25 23:59 | disposition home or self-care (01) ==
LOC: LAB.N 08:00
PROVIDERS: ATTEND Physician Assistant Medical
DX: I10 Essential (primary) hypertension (principal); D50.9 Iron deficiency anemia, unspecified
CPT/HCPCS: 36415; 80048; 82274; 82728; 83540; 84466; 85044

== ENCOUNTER 2018-10-05 10:57 | Outpatient (CLI) | payer MEDICAID | END 2018-10-05 10:58 | disposition home or self-care (01) | LOC: LAB 10:57 | PROVIDERS: ATTEND Physician Assistant Medical | DX: Z53.9 Procedure and treatment not carried out, unspecified reason (principal) ==

== ENCOUNTER 2018-12-17 15:31 | Outpatient (CLI) | payer MEDICAID ==
[2018-12-17 18:52] LABS: CALCIUM 9.3 mg/dL (8.5-10.3); CREATININE 0.8 mg/dL (0.6-1.2)
== END 2018-12-17 23:59 | disposition home or self-care (01) ==
LOC: LAB.N 15:31
PROVIDERS: ATTEND Internal Medicine Cardiovascular Disease
DX: I10 Essential (primary) hypertension (principal)
CPT/HCPCS: 36415; 80048

== ENCOUNTER 2019-05-14 08:00 | Outpatient (CLI) | payer MEDICAID ==
[2019-05-14 18:49] LABS: CALCIUM 8.9 mg/dL (8.5-10.3); CREATININE 0.8 mg/dL (0.6-1.2)
[2019-05-14 18:54] LABS: HB2 TOTAL 13.6 g/dL; HEMOGLOBIN A1C 0.59 g/dL; HEMOGLOBIN A1C % 6.1 % (4.6-6.2)
== END 2019-05-14 23:59 | disposition home or self-care (01) ==
LOC: LAB.N 08:00
PROVIDERS: ATTEND Physician Assistant Medical
DX: E66.9 Obesity, unspecified (principal)
CPT/HCPCS: 36415; 80048; 83036

== ENCOUNTER 2019-08-30 16:24 | Outpatient (CLI) | payer MEDICAID ==
--- NOTE | 2019-09-01 08:28 | XRAY Report ---
Reason: RT FOOT PAIN Procedure Date: 08/30/2019 Accession Number: [id number] / [id number] Procedure: XR - Foot 3 View RT CPT Code: Final Report FULL RESULT: EXAM: RIGHT FOOT RADIOGRAPHY EXAM DATE: 08/30/2019 04:45 PM. CLINICAL HISTORY: RT FOOT PAIN. COMPARISON: FOOT 3 VIEW BILAT 03/03/2017 4:08 PM. TECHNIQUE: 3 views. FINDINGS: Bones: No fractures or bone lesions. Possible shrapnel 3rd middle phalanx, also seen on 2017 radiographs. Joints: No subluxations. Soft Tissues: Soft tissue swelling over the dorsum of the foot. IMPRESSION: No evidence for acute osseous injury. Soft tissue swelling over dorsum of foot. RADIA
--- NOTE | 2019-09-02 15:24 | Ultrasound Report ---
Reason: PULSATILE ABD PAIN Procedure Date: 08/30/2019 Accession Number: [id number] / [id number] Procedure: US - Arterial Visceral Complete CPT Code: Final Report FULL RESULT: EXAM: RENAL ARTERY DOPPLER ULTRASOUND. EXAM DATE: 08/30/2019 06:10 PM. CLINICAL HISTORY: Pulsatile abdominal pain. COMPARISON: None. TECHNIQUE: Real-time sonographic vascular imaging was performed by the java integration developer through the renal arterial system with a linear transducer utilizing color-flow, Doppler flow, and spectral analysis. Multiple pharmaceutical service representative static images were saved for review. FINDINGS: Study is technically limited due to the patient's body habitus Right Kidney: 13.7 x 5.2 x 6.8 cm. Echotexture: Lobulated contour, possible column of [place] . Right Segmental Artery: Upper pole: PSV 37.1 cm/sec, RI 0.7. Mid pole: PSV 34.7 cm/sec, RI 0.7. Lower pole: PSV 41.1 cm/sec, RI 0.8. Right Renal Artery: Origin: Not seen. Proximal: Not seen. Mid: PSV 25.3 cm/sec, RA/AO 0.8. Distal: PSV 43.0 cm/sec, RA/AO 1.4. Aorta PSV: 31.6 cm/sec. RRV Patent: Not well seen. . Left Kidney: 14.1 x 6.3 x 6.5 cm. Echotexture: Lobulated renal contour. Left Segmental Artery: Upper pole: PSV 32.2 cm/sec, RI 0.7. Mid pole: PSV 20.2 cm/sec, RI 0.8. Lower pole: PSV 27.4 cm/sec, RI 0.8. Left Renal Artery: Origin: PSV 31.3 cm/sec, RA/AO 1.0. Proximal: PSV 53.7 cm/sec, RA/AO 1.7. Mid: PSV 39.4 cm/sec, RA/AO 1.2. Distal: PSV 45.7 cm/sec, RA/AO 1.4. LRV Patent: Yes. IMPRESSION: Limited ultrasound due to patient scanning characteristics. No significant renal artery stenosis is identified. CRITERIA FOR CLASSIFICATION OF RENAL ARTERY (RA) DISEASE BY DUPLEX SCANNING: RA Diameter Reduction/ RA PSV/ RAR: Normal, < 180 cm/sec, < 3.5 < 60%, >= 180 cm/sec, < 3.5 >= 60%, >= 180 cm/sec, >= 3.5 Total Occlusion: Undetectable; Not applicable RADIA
== END 2019-08-30 16:25 | disposition home or self-care (01) ==
LOC: DI 16:24
PROVIDERS: ATTEND Physician Assistant Medical
DX: R19.00 Intra-abdominal and pelvic swelling, mass and lump, unspecified site (principal); M79.671 Pain in right foot; R22.41 Localized swelling, mass and lump, right lower limb
CPT/HCPCS: 93975

== ENCOUNTER 2019-10-23 13:44 | Outpatient (CLI) | payer MEDICAID ==
[2019-10-23 14:53] LABS: BASOPHILS # (AUTO) 0.1 10^3/uL (0.0-0.1); BASOPHILS % (AUTO) 0.7 %; EOSINOPHILS # (AUTO) 0.2 10^3/uL (0.0-0.7); EOSINOPHILS % (AUTO) 1.6 %; LYMPHOCYTES % (AUTO) 25.8 %; MEAN CORPUSCULAR HEMOGLOBIN 24.3 pg (27.0-31.0); MEAN CORPUSCULAR HGB CONC 30.8 g/dL (32.0-36.0); MEAN CORPUSCULAR VOLUME 78.8 fL (80.0-94.0); MEAN PLATELET VOLUME 10.2 fL (7.4-11.4); MONOCYTES # (AUTO) 0.9 10^3/uL (0.0-1.0); MONOCYTES % (AUTO) 7.9 %; NEUTROPHILS # (AUTO) 7.4 10^3/uL (1.5-6.6); NEUTROPHILS % (AUTO) 63.4 %; PLT - PLATELET COUNT 245 10^3/uL (130-450); RED BLOOD COUNT 5.76 10^6/uL (4.70-6.10); RED CELL DISTRIBUTION WIDTH 15.9 % (12.0-15.0); WHITE BLOOD COUNT 11.6 x10^3/uL (4.8-10.8)
[2019-10-23 15:06] LABS: ALBUMIN 3.9 g/dL (3.2-5.5); ALBUMIN/GLOBULIN RATIO 0.9 (1.0-2.2); BILIRUBIN,TOTAL 0.7 mg/dL (0.2-1.0); CREATININE 0.9 mg/dL (0.6-1.2); TOTAL PROTEIN 8.4 g/dL (6.7-8.2)
[2019-10-23 15:22] LABS: THYROID STIMULATING HORMONE 4.99 uIU/mL (0.34-5.60)
[2019-10-23 15:24] LABS: FREE T4 (FREE THYROXINE) 0.98 ng/dL (0.58-1.64)
== END 2019-10-23 13:45 | disposition home or self-care (01) ==
LOC: LAB 13:44
DX: C73 Malignant neoplasm of thyroid gland (principal); E89.0 Postprocedural hypothyroidism; F32.9 Major depressive disorder, single episode, unspecified; R19.00 Intra-abdominal and pelvic swelling, mass and lump, unspecified site
CPT/HCPCS: 36415; 80053; 84439; 84443; 85025; 86800

== ENCOUNTER 2020-07-20 14:11 | Outpatient (CLI) | payer MEDICAID ==
[2020-07-20 15:19] LABS: THYROID STIMULATING HORMONE 7.17 uIU/mL (0.34-5.60)
== END 2020-07-20 14:12 | disposition home or self-care (01) ==
LOC: LAB 14:11
PROVIDERS: ATTEND Internal Medicine
DX: C73 Malignant neoplasm of thyroid gland (principal); E89.0 Postprocedural hypothyroidism
CPT/HCPCS: 36415; 81599; 84432; 84439; 84443

== ENCOUNTER 2021-01-26 14:47 | Outpatient (CLI) | payer MEDICAID ==
[2021-01-26 15:33] LABS: THYROID STIMULATING HORMONE 5.71 uIU/mL (0.34-5.60)
[2021-01-26 15:36] LABS: FREE T4 (FREE THYROXINE) 1.02 ng/dL (0.58-1.64)
== END 2021-01-26 14:48 | disposition home or self-care (01) ==
LOC: LAB 14:47
PROVIDERS: ATTEND Internal Medicine
DX: E89.0 Postprocedural hypothyroidism (principal); E66.01 Morbid (severe) obesity due to excess calories; Z68.44 Body mass index [BMI] 60.0-69.9, adult; C73 Malignant neoplasm of thyroid gland; G47.30 Sleep apnea, unspecified
CPT/HCPCS: 36415; 84439; 84443

== ENCOUNTER 2021-03-27 01:04 | Emergency (ER) | payer MEDICAID ==
--- NOTE | 2021-03-27 01:26 | ED Physician Documentation ---
PD HPI MALE - Stated complaint Stated Complaint: BLOOD IN URINE - Chief complaint Chief Complaint: Abd Pain - History obtained from History obtained from: Patient - History of Present Illness Timing - onset: Today Timing - details: Abrupt onset Pain level max: 0 Pain level now: 0 Associated symptoms: Dysuria, Urinary frequency, Hematuria. No: Discharge, Scrotal swelling, Abdominal pain Similar symptoms before: Has not had sx before Recently seen: Not recently seen - Additional information Additional information: sudden onset hematuria today, milder (pink tinge) yesterday. also notes urinary frequency with little output and sensation of incomplete bladder voiding. Review of Systems Constitutional: reports: Reviewed and negative GI: reports: Reviewed and negative : reports: Dysuria, Frequency, Hematuria Skin: denies: Rash Musculoskeletal: denies: Neck pain PD PAST MEDICAL HISTORY - Past Medical History Cardiovascular: Hypertension Respiratory: Asthma Endocrine/Autoimmune: None GI: None : None HEENT: None Psych: Anxiety Musculoskeletal: Osteoarthritis, Chronic back pain, Other Derm: None - Past Surgical History Past Surgical History: Yes - Present Medications Home Medications: Ambulatory Orders Medication Instructions Recorded Confirmed Albuterol Sulfate [Proair Hfa 2 puffs IH Q6HR PRN 03/27/21 03/27/21 Inhaler] Amox/Clav 875/125 [Augmentin 1 tablet PO Q12H 10 Days #20 tablet 03/27/21 875/125 Tab] Carbidopa/Levodopa [Carbidopa-Levo 1 tab PO TID 03/27/21 03/27/21 ER 25-100 Tab] Chlorthalidone 25 mg PO DAILY 03/27/21 03/27/21 Chlorthalidone 25 mg PO DAILY 03/27/21 03/27/21 Levothyroxine Sodium 200 mcg PO DAILY 03/27/21 03/27/21 [Levothyroxine] Potassium Chloride [Klor-Con 10] 1 tab PO DAILY 03/27/21 03/27/21 Valsartan [Diovan] 80 mg PO DAILY 03/27/21 03/27/21 - Allergies Allergies/Adverse Reactions: Allergies Allergy/AdvReac Type Severity Reaction Status Date / Time hydrocodone Allergy Unknown Verified 03/27/21 01:16 morphine Allergy Unknown Verified 03/27/21 01:16 oxycodone Allergy Unknown Verified 03/27/21 01:16 - Social History Does the pt smoke?: No Smoking Status: Never smoker Does the pt drink ETOH?: No Does the pt have substance abuse?: No - Immunizations Immunizations are current?: Yes - POLST Patient has POLST: No PD ED PE NORMAL - Vitals Vital signs reviewed: Yes - General General: Alert and oriented X 3, No acute distress, Other (morbidly obese) - Cardiac Cardiac: RRR, No murmur - Respiratory Respiratory: No respiratory distress, Clear bilaterally - Abdomen Abdomen: Soft, Non tender - Back Back: No CVA TTP - Derm Derm: Normal color, Warm and dry Results - Vitals Vitals: Oxygen O2 Source Room air - Labs Labs: Laboratory Tests 03/27/21 03/27/21 03/27/21 01:20 01:58 01:58 WBC 16.9 H RBC 5.12 Hgb 12.6 L Hct 40.6 L MCV 79.3 L MCH 24.6 L MCHC 31.0 L RDW 16.1 H Plt Count 229 MPV 10.6 Neut # (Auto) 12.6 H Lymph # (Auto) 2.7 [place] # (Auto) 1.3 H Eos # (Auto) 0.1 Baso # (Auto) 0.1 Absolute Nucleated RBC 0.00 Nucleated RBC % 0.0 Sodium 135 Potassium 3.6 Chloride 97 L Carbon Dioxide 25 Anion Gap 13.0 BUN 17 Creatinine 0.8 Estimated GFR (MDRD) 102 Glucose 105 H Calcium 8.8 Total Bilirubin 0.7 AST 21 ALT 29 Alkaline Phosphatase 48 Total Protein 8.2 Albumin 4.2 Globulin 4.0 Albumin/Globulin Ratio 1.1 Lipase 23 Urine Color RED/BLOODY Urine Clarity SL. CLOUDY Urine pH 5.5 Ur Specific [place] 1.020 Urine Protein Urine Glucose (UA) NEGATIVE Urine Ketones TRACE Urine Occult Blood LARGE H Urine Nitrite Urine Bilirubin NEGATIVE Urine Urobilinogen Ur Leukocyte Esterase Urine RBC TNTC H Urine WBC 6-10 H Ur Squamous Epith Cells NONE SEEN Urine Bacteria Moderate H Urine Mucus Few Strands Ur Microscopic Review INDICATED Urine Culture Comments INDICATED PD MEDICAL DECISION MAKING - ED course Complexity details: reviewed results, re-evaluated patient, considered differential, d/w patient ED course: UA is mostly blood (TNTC) but some white blood cells and symptoms are suggestive of UTI. CT A/P is suboptimal due to body habitus ans patient refused IV contrast (was worried he would have nephrotoxicity although no particular reason why he would get this). No grossly apparent abnormalities on CT, will treat as hemorrhagic cystitis, but I advised him that this was not a confident diagnosis and that he should f/u with urology, as further testing such as ureteroscopy might be indicated Departure - Departure Disposition: Home, Self Care Clinical Impression: Hemorrhagic cystitis Condition: Good Instructions: ED Hematuria, ED UTI Cystitis Male Prescriptions: Amox/Clav 875/125 [Augmentin 875/125 Tab] 1 tablet PO Q12H 10 Days #20 tablet Comments: Follow up with your primary care provider, next available appointment. Further testing might be necessary regarding the blood in your urine. Discharge Date/Time: 03/27/21 04:51
[2021-03-27 01:30] LABS: GLUCOSE, URINE (UA) NEGATIVE (NEGATIVE); KETONES,URINE (UA) TRACE mg/dL (NEGATIVE); OCCULT BLOOD,URINE LARGE (NEGATIVE); PH,URINE 5.5 PH (5.0-7.5)
[2021-03-27 01:34] LABS: CLARITY,URINE SL. CLOUDY (CLEAR)
[2021-03-27 01:35] LABS: BILIRUBIN,URINE NEGATIVE (NEGATIVE); ICTOTEST,URINE NEGATIVE
[2021-03-27 01:37] LABS: BACTERIA,URINE Moderate /HPF (None Seen); MUCUS,URINE Few Strands; RBC,URINE TNTC /HPF (0-5); SQUAMOUS EPITHELIAL CELL,UR NONE SEEN (<= Few)
[2021-03-27 02:06] LABS: BASOPHILS # (AUTO) 0.1 10^3/uL (0.0-0.1); BASOPHILS % (AUTO) 0.5 %; EOSINOPHILS # (AUTO) 0.1 10^3/uL (0.0-0.7); EOSINOPHILS % (AUTO) 0.8 %; HCT - HEMATOCRIT 40.6 % (42.0-52.0); HGB - HEMOGLOBIN 12.6 g/dL (14.0-18.0); LYMPHOCYTES # (AUTO) 2.7 10^3/uL (1.5-3.5); MEAN CORPUSCULAR HEMOGLOBIN 24.6 pg (27.0-31.0); MEAN CORPUSCULAR VOLUME 79.3 fL (80.0-94.0); MEAN PLATELET VOLUME 10.6 fL (7.4-11.4); MONOCYTES # (AUTO) 1.3 10^3/uL (0.0-1.0); MONOCYTES % (AUTO) 7.7 %; NEUTROPHILS # (AUTO) 12.6 10^3/uL (1.5-6.6); NEUTROPHILS % (AUTO) 74.5 %; PLT - PLATELET COUNT 229 10^3/uL (130-450); RED BLOOD COUNT 5.12 10^6/uL (4.70-6.10); RED CELL DISTRIBUTION WIDTH 16.1 % (12.0-15.0); WHITE BLOOD COUNT 16.9 x10^3/uL (4.8-10.8)
[2021-03-27 02:19] LABS: ALBUMIN 4.2 g/dL (3.2-5.5); ALBUMIN/GLOBULIN RATIO 1.1 (1.0-2.2); BILIRUBIN,TOTAL 0.7 mg/dL (0.2-1.0); CALCIUM 8.8 mg/dL (8.5-10.3); CREATININE 0.8 mg/dL (0.6-1.2); POTASSIUM 3.6 mmol/L (3.5-5.0); TOTAL PROTEIN 8.2 g/dL (6.7-8.2)
[2021-03-27] MEDS ORDERED: AMOX/CLAV 875 MG/125 MG TABLET PO STA (04:29)
[2021-03-27 04:51] VITALS: BP 145/80
--- NOTE | 2021-03-27 09:43 | CT Report ---
PROCEDURE: Abdomen/Pelvis WO INDICATIONS: hematuria, right flank pain TECHNIQUE: Noncontrast 5 mm thick sections acquired from the diaphragms to the symphysis. 5 mm coronal and sagi ttal reformats were then performed. For radiation dose reduction, the following was used: automated exposure control, adjustment of mA and/or kV according to patient size. COMPARISON: None. FINDINGS: Image quality: This study is limited by body habitus. ABDOMEN: Lung bases: Lung bases are clear. Heart size is normal. Solid organs: Diffuse fatty liver infiltration can be seen. No focal liver lesions are seen. The sp audelia demonstrates normal size, without focal lesion. Gallbladder is not well seen. Pancreas is normal in contours. No adrenal nodules. There is a potential nonobstructing right-sided kidney stone. No left-sided kidney stones. No hydrone phrosis. The kidneys demonstrate normal size. Peritoneum and bowel: Unenhanced bowel loops demonstrate normal wall thickness and caliber. No free fluid or air. Minimal sigmoid diverticulosis is seen, without findings of active diverticulitis. Nodes and vessels: No retroperitoneal or mesenteric adenopathy by size criteria. Aorta and inferior vena cava are normal in caliber. Miscellaneous: No ventral hernias. PELVIS: Genitourinary: Bladder wall thickness is normal. Miscellaneous: No inguinal hernias or adenopathy. Bones: No suspicious bony lesions. No vertebral body compression fractures. Degenerative changes ar e seen throughout. IMPRESSION: Potential nonobstructing right-sided kidney stone, which is not well seen. No hydronephrosis is seen either side. Incidental note is made of: Fatty liver infiltration Minimal sigmoid diverticulosis, without findings of active diverticulitis. Note: No significant discrepancy from the preliminary report. Reviewed by: Wild Landrum MD on 03/27/2021 8:42 AM EDDIE Approved by: Wild Landrum MD on 03/27/2021 8:42 AM AKDT Station ID: [id number]
== END 2021-03-27 04:51 | disposition home or self-care (01) ==
LOC: ED 01:04
DX: N30.91 Cystitis, unspecified with hematuria (principal)
CPT/HCPCS: 36415; 74176; 80053; 81001; 83690; 85025; 87086; 99283; 99284; A9270; 81003

== ENCOUNTER 2021-04-03 16:51 | Outpatient (CLI) | payer MEDICAID ==
--- NOTE | 2021-04-03 18:44 | Ultrasound Report ---
PROCEDURE: Head or Neck Soft Tissue INDICATIONS: PAPILLARY THYROID CA STATUS post thyroidectomy. TECHNIQUE: Real time scanning was performed of the neck region of interest, with image documentation . COMPARISON: None. FINDINGS: No soft tissue neck abnormality seen bilaterally. The thyroid bed shows appropriate muscul ar and fascial planes. No evidence of mass lesion. IMPRESSION: Unremarkable ultrasound of the thyroid bed status post thyroidectomy. No evidence of recurrent or res idual mass lesion. Reviewed by: Amado Chu MD on 04/03/2021 5:43 PM EDDIE Approved by: Amado Chu MD on 04/03/2021 5:43 PM AKALVAREZ Station ID: [id number]
== END 2021-04-03 16:52 | disposition home or self-care (01) ==
LOC: DI 16:51
PROVIDERS: ATTEND Internal Medicine
DX: C73 Malignant neoplasm of thyroid gland (principal); M54.2 Cervicalgia

== ENCOUNTER 2021-04-19 08:00 | Outpatient (CLI) | payer MEDICAID | END 2021-04-19 23:59 | disposition home or self-care (01) | LOC: LAB.N 08:00 | PROVIDERS: ATTEND Physician Assistant Medical | DX: R30.0 Dysuria (principal) | CPT/HCPCS: 87086; 87181 ==

== ENCOUNTER 2022-01-06 15:38 | Outpatient (CLI) | payer MEDICAID ==
[2022-01-06 16:39] LABS: THYROID STIMULATING HORMONE 4.4 uIU/mL (0.34-5.60)
[2022-01-06 16:43] LABS: FREE T4 (FREE THYROXINE) 1.05 ng/dL (0.58-1.64)
== END 2022-01-06 15:39 | disposition home or self-care (01) ==
LOC: LAB 15:38
PROVIDERS: ATTEND Internal Medicine
DX: C73 Malignant neoplasm of thyroid gland (principal); E89.0 Postprocedural hypothyroidism
CPT/HCPCS: 36415; 81599; 84439; 84443; 86800

== ENCOUNTER 2022-07-25 14:47 | Outpatient (CLI) | payer MEDICAID ==
[2022-07-25 15:40] LABS: THYROID STIMULATING HORMONE 9.13 uIU/mL (0.34-5.60)
[2022-07-25 15:42] LABS: FREE T4 (FREE THYROXINE) 1.07 ng/dL (0.58-1.64)
== END 2022-07-25 14:48 | disposition home or self-care (01) ==
LOC: LAB 14:47
PROVIDERS: ATTEND Student in an Organized Health Care Education/Training Program
DX: C73 Malignant neoplasm of thyroid gland (principal); E89.0 Postprocedural hypothyroidism
CPT/HCPCS: 36415; 81599; 84432; 84439; 84443; 86800

== ENCOUNTER 2022-08-12 13:59 | Emergency (ER) | payer MEDICAID ==
[2022-08-12 14:35] VITALS: BP 171/93
--- NOTE | 2022-08-12 15:27 | ED Physician Documentation ---
PD HPI BACK PAIN - Stated complaint Stated Complaint: L BACK PX - Chief complaint Chief Complaint: Back Pain - History obtained from History obtained from: Patient - Additional information Additional information: 51-year-old gentleman with history of super morbid obesity and thyroid cancer in remission as well as hypertension but not diabetes. He presents with a weeks worth of right flank pain rating to the right abdomen. He says he usually has this yearly and last for a couple of days, this time it is lasting longer and more severe than usual. A little over a year ago he had potential nephrolith on that side on CT but subsequently followed up with urology and they did not think it was a nephrolith. He does have some urinary frequency and also noted pale stools earlier this week. Review of Systems Ten Systems: 10 systems reviewed and negative Constitutional: denies: Fever, Chills GI: denies: Nausea, Vomiting, Diarrhea : reports: Frequency. denies: Dysuria PD PAST MEDICAL HISTORY - Past Medical History Cardiovascular: Hypertension Respiratory: Asthma Neuro: Parkinson's Endocrine/Autoimmune: None GI: None : None HEENT: None Psych: Anxiety Musculoskeletal: Osteoarthritis, Chronic back pain, Other Derm: None - Past Surgical History Past Surgical History: Yes General: Other - Present Medications Home Medications: Ambulatory Orders Medication Instructions Recorded Confirmed Chlorthalidone 12.5 mg PO DAILY 03/27/21 08/12/22 Levothyroxine Sodium 200 mcg PO DAILY 03/27/21 08/12/22 [Levothyroxine] Potassium Chloride [Klor-Con 10] 1 tab PO DAILY 03/27/21 08/12/22 Cyclobenzaprine [Flexeril] 10 mg PO TID PRN #20 tablet 08/12/22 Indomethacin [Indocin] 25 mg PO BIDWM #20 08/12/22 - Allergies Allergies/Adverse Reactions: Allergies Allergy/AdvReac Type Severity Reaction Status Date / Time hydrocodone Allergy Unknown Verified 08/12/22 15:22 morphine Allergy Unknown Verified 08/12/22 15: oxycodone Allergy Unknown Verified 08/12/22 15:22 - Social History Does the pt smoke?: No Smoking Status: Never smoker Does the pt drink ETOH?: No Does the pt have substance abuse?: No - Immunizations Immunizations are current?: Yes - POLST Patient has POLST: No PD ED PE NORMAL - Vitals Vital signs reviewed: Yes - General General: Alert and oriented X 3, No acute distress, Other (Noted BMI of 69.4) - Respiratory Respiratory: Clear bilaterally - Abdomen Abdomen: Normal bowel sounds, Soft, Non tender - Back Back: No CVA TTP, No spinal TTP - Neuro Neuro: Alert and oriented X 3, Normal speech Results - Vitals Vitals: Vital Signs - 24 hr 08/12/22 14:28 Temperature 36.7 C Heart Rate 68 Respiratory 16 Rate Blood Pressure 171/93 H O2 Saturation 98 Oxygen O2 Source Room air - Labs Labs: Laboratory Tests 08/12/22 08/12/22 08/12/22 14:45 15:30 15:30 WBC 10.4 RBC 5.20 Hgb 12.5 L Hct 40.7 L MCV 78.3 L MCH 24.0 L MCHC 30.7 L RDW 16.1 H Plt Count 219 MPV 10.2 Neut # (Auto) 6.6 Lymph # (Auto) 2.6 [place] # (Auto) 1.0 Eos # (Auto) 0.1 Baso # (Auto) 0.1 Absolute Nucleated RBC 0.00 Nucleated RBC % 0.0 Sodium 140 Potassium 4.3 Chloride 104 Carbon Dioxide 26 Anion Gap 10.0 BUN 16 Creatinine 0.8 Estimated GFR (MDRD) 101 Glucose 100 Calcium 9.3 Total Bilirubin 0.4 AST 19 ALT 23 Alkaline Phosphatase 45 Total Protein 8.2 Albumin 3.8 Globulin 4.4 H Albumin/Globulin Ratio 0.9 L Lipase 28 Urine Color YELLOW Urine Clarity CLEAR Urine pH 6.0 Ur Specific [employer] 1.020 Urine Protein NEGATIVE Urine Glucose (UA) NEGATIVE Urine Ketones NEGATIVE Urine Occult Blood NEGATIVE Urine Nitrite NEGATIVE Urine Bilirubin NEGATIVE Urine Urobilinogen 0.2 (NORMAL) Ur Leukocyte Esterase NEGATIVE Ur Microscopic Review NOT INDICATED Urine Culture Comments NOT INDICATED PD MEDICAL DECISION MAKING - ED course ED course: 51-year-old gentleman with potential history of renal colic presents with back pain could be consistent with same, responsive to indomethacin at home and now out. Differential diagnosis also includes shingles but there is no sign of that, muscular back pain. Doubt AAA given negative CAT scan for same last year. He declined pain medication here. He did have some pale stools, but liver enzymes here are normal. No evidence of hematuria. Departure - Departure Disposition: 01 Home, Self Care Clinical Impression: Back pain Qualifiers: Back pain location: low back pain Chronicity: acute Back pain laterality: right Sciatica presence: without sciatica Qualified Code(s): M54.50 - Low back pain, unspecified Condition: Good Record reviewed to determine appropriate education?: Yes Instructions: ED Neck Back Pain General Prescriptions: Cyclobenzaprine [Flexeril] 10 mg PO TID PRN #20 tablet PRN Reason: Spasms Indomethacin [Indocin] 25 mg PO BIDWM #20 Comments: Urine and labs are normal, no evidence of liver dysfunction, pancreatitis, or blood in the urine to suggest kidney stone. Call your doctor to arrange a follow-up appointment, make the next available appointment. In the interim, return anytime if worse or if new symptoms develop.
[2022-08-12 15:34] LABS: BILIRUBIN,URINE NEGATIVE (NEGATIVE); GLUCOSE, URINE (UA) NEGATIVE (NEGATIVE); KETONES,URINE (UA) NEGATIVE (NEGATIVE); LEUKOCYTE ESTERASE, URINE NEGATIVE (NEGATIVE); NITRITE,URINE NEGATIVE (NEGATIVE); OCCULT BLOOD,URINE NEGATIVE (NEGATIVE); PROTEIN,URINE NEGATIVE (NEGATIVE); UROBILINOGEN,URINE 0.2 (NORMAL) E.U./dL (NORMAL)
[2022-08-12 15:37] LABS: CLARITY,URINE CLEAR (CLEAR)
[2022-08-12 15:38] LABS: BASOPHILS # (AUTO) 0.1 10^3/uL (0.0-0.1); BASOPHILS % (AUTO) 0.6 %; EOSINOPHILS # (AUTO) 0.1 10^3/uL (0.0-0.7); EOSINOPHILS % (AUTO) 1.1 %; HCT - HEMATOCRIT 40.7 % (42.0-52.0); HGB - HEMOGLOBIN 12.5 g/dL (14.0-18.0); LYMPHOCYTES # (AUTO) 2.6 10^3/uL (1.5-3.5); LYMPHOCYTES % (AUTO) 24.7 %; MEAN CORPUSCULAR HGB CONC 30.7 g/dL (32.0-36.0); MEAN CORPUSCULAR VOLUME 78.3 fL (80.0-94.0); MEAN PLATELET VOLUME 10.2 fL (7.4-11.4); MONOCYTES % (AUTO) 9.4 %; NEUTROPHILS # (AUTO) 6.6 10^3/uL (1.5-6.6); NEUTROPHILS % (AUTO) 63.6 %; PLT - PLATELET COUNT 219 10^3/uL (130-450); RED CELL DISTRIBUTION WIDTH 16.1 % (12.0-15.0); WHITE BLOOD COUNT 10.4 x10^3/uL (4.8-10.8)
[2022-08-12 15:50] LABS: ALBUMIN 3.8 g/dL (3.2-5.5); ALBUMIN/GLOBULIN RATIO 0.9 (1.0-2.2); BILIRUBIN,TOTAL 0.4 mg/dL (0.2-1.0); CALCIUM 9.3 mg/dL (8.5-10.3); CREATININE 0.8 mg/dL (0.6-1.2); POTASSIUM 4.3 mmol/L (3.5-5.0); TOTAL PROTEIN 8.2 g/dL (6.7-8.2)
== END 2022-08-12 17:50 | disposition home or self-care (01) ==
LOC: ED 13:59
DX: M54.50 Low back pain, unspecified (principal); R10.9 Unspecified abdominal pain; R35.0 Frequency of micturition; I10 Essential (primary) hypertension; E66.01 Morbid (severe) obesity due to excess calories; Z68.44 Body mass index [BMI] 60.0-69.9, adult; Z85.850 Personal history of malignant neoplasm of thyroid; G20 Parkinson's disease; Z79.899 Other long term (current) drug therapy
CPT/HCPCS: 36415; 80053; 81001; 81003; 83690; 85025; 87086; 99283; 99284

== ENCOUNTER 2022-10-21 11:15 | Outpatient (CLI) | payer MEDICAID ==
[2022-10-21 13:20] LABS: THYROID STIMULATING HORMONE 7.12 uIU/mL (0.34-5.60)
[2022-10-21 13:22] LABS: FREE T4 (FREE THYROXINE) 1.09 ng/dL (0.58-1.64)
--- NOTE | 2022-10-21 16:50 | Ultrasound Report ---
PROCEDURE: Head or Neck Soft Tissue INDICATIONS: THYROID CA TECHNIQUE: Real time scanning was performed of the neck region of interest, with image documentation . COMPARISON: None. FINDINGS: No soft tissue neck abnormality seen bilaterally. Bilateral cervical lymph nodes, largest of which measure 20 mm x 17 mm x 10 mm within the right neck, and 7 mm x 4 mm x 8 mm within the left neck. IMPRESSION: No evidence of recurrent tumor. Reviewed by: Kristi Babb MD on 10/21/2022 4:48 PM PST Approved by: Kristi Babb MD on 10/21/2022 4:48 PM PST Station ID: [id number]
== END 2022-10-21 11:16 | disposition home or self-care (01) ==
LOC: DI 11:15
PROVIDERS: ATTEND Student in an Organized Health Care Education/Training Program
DX: C73 Malignant neoplasm of thyroid gland (principal)
CPT/HCPCS: 36415; 81599; 84439; 84443; 86800

== ENCOUNTER 2023-02-01 16:09 | Outpatient (CLI) | payer MEDICAID ==
[2023-02-01 16:52] LABS: THYROID STIMULATING HORMONE 3.21 uIU/mL (0.34-5.60)
[2023-02-01 16:54] LABS: FREE T4 (FREE THYROXINE) 1.3 ng/dL (0.58-1.64)
== END 2023-02-01 16:10 | disposition home or self-care (01) ==
LOC: LAB 16:09
PROVIDERS: ATTEND Student in an Organized Health Care Education/Training Program
DX: E89.0 Postprocedural hypothyroidism (principal)
CPT/HCPCS: 36415; 84439; 84443

== ENCOUNTER 2023-06-24 15:10 | Outpatient (CLI) | payer MEDICAID ==
[2023-06-24 15:55] LABS: THYROID STIMULATING HORMONE 2.55 uIU/mL (0.34-5.60)
== END 2023-06-24 15:11 | disposition home or self-care (01) ==
LOC: LAB 15:10
PROVIDERS: ATTEND Student in an Organized Health Care Education/Training Program
DX: C73 Malignant neoplasm of thyroid gland (principal); E89.0 Postprocedural hypothyroidism
CPT/HCPCS: 36415; 81599; 84432; 84439; 84443; 86800

== ENCOUNTER 2023-07-01 12:42 | Emergency (ER) | payer MEDICAID ==
[2023-07-01 12:55] VITALS: BP 192/85; O2SAT 97
--- NOTE | 2023-07-01 13:34 | ED Physician Documentation ---
PD HPI SKIN - Stated complaint Stated Complaint: LT LEG PX/REDNESS/SWELLING - Chief complaint Chief Complaint: Ext Problem - History obtained from History obtained from: Patient - History of Present Illness Timing - onset: How many weeks ago (some pain dorsum of both feet at times over past 3 weeks, but left foot has become very painful the past 3 days, with redness and swelling increasing. The redness has remained just dorsum of foot. No skin sores nor lesions. No red streaking.) Timing - duration: Days Timing - details: Gradual onset, Still present Location: LLE (dorsum of foot) Quality / character: Painful, Discolored (red), Swelling Associated symptoms: No: Fever, Myalgias Contributing factors: Other (no recent injury to the area.). No: Recent illness Similar symptoms before: Has not had sx before (not in this area. Had toe pain years ago and Dx as likely gout. No frequent episodes.) Review of Systems Constitutional: denies: Fever, Chills, Myalgias Skin: denies: Abrasion (s), Laceration (s) Neurologic: denies: Focal weakness, Numbness PD PAST MEDICAL HISTORY - Past Medical History Cardiovascular: Hypertension Respiratory: Asthma Neuro: Parkinson's Endocrine/Autoimmune: None GI: None : None HEENT: None Psych: Anxiety Musculoskeletal: Osteoarthritis, Chronic back pain, Other Derm: None - Past Surgical History Past Surgical History: Yes General: Other - Present Medications Home Medications: Ambulatory Orders Medication Instructions Recorded Confirmed Chlorthalidone 12.5 mg PO DAILY 03/27/21 08/12/22 Levothyroxine Sodium 200 mcg PO DAILY 03/27/21 08/12/22 [Levothyroxine] Potassium Chloride [Klor-Con 10] 1 tab PO DAILY 03/27/21 08/12/22 Cyclobenzaprine [Flexeril] 10 mg PO TID PRN #20 tablet 08/12/22 Indomethacin [Indocin] 25 mg PO BIDWM #20 08/12/22 Colchicine 0.6 mg PO TID PRN #10 tablet 07/01/23 Naproxen 500 mg PO BID #20 tab 07/01/23 - Allergies Allergies/Adverse Reactions: Allergies Allergy/AdvReac Type Severity Reaction Status Date / Time hydrocodone Allergy Unknown Verified 07/01/23 12:49 morphine Allergy Unknown Verified 07/01/23 12:49 oxycodone Allergy Unknown Verified 07/01/23 12:49 - Social History Does the pt smoke?: No Smoking Status: Never smoker Does the pt drink ETOH?: No Does the pt have substance abuse?: No - Immunizations Immunizations are current?: Yes - POLST Patient has POLST: No PD ED PE NORMAL - Vitals Vital signs reviewed: Yes - General General: Alert and oriented X 3, No acute distress, Well developed/nourished, Other (large BMI. despite that he is fairly flexible and states he cleans and moisturizes his feet regularly. ) - Derm Derm: Normal color (generally), Warm and dry, Other (left foot dorsum with localized redness, swelling, very tender at dorsum of mid foot to base of toes. No proximal streaking, no redness above the foot. No skin sores nor lesions. His skin is quite supple and soft, and no dryness, even between the toes. ) - Extremities Extremities: No edema, No calf tenderness / cord - Neuro Neuro: No motor deficit, No sensory deficit Results - Vitals Vitals: Oxygen O2 Source Room air PD Medical Decision Making - ED course Complexity details: considered differential (redness and swelling for few days localized to dorsum of foot without skin lesions nor sores, and not extended beyond the area during the time. Seems c/w gout rather than infectious. ), d/w patient Departure - Departure Disposition: 01 Home, Self Care Clinical Impression: Redness and swelling of lower leg, Exacerbation of gout Condition: Stable Record reviewed to determine appropriate education?: Yes Instructions: ED Arthritis Gout Follow-Up: Stanislav Ragland MD [Primary Care Provider] - Prescriptions: Colchicine 0.6 mg PO TID PRN #10 tablet PRN Reason: Pain 5-7 Naproxen 500 mg PO BID #20 tab Comments: This looks like a gout episode. It does not look like infection/ cellulitis. I would treat this with anti-inflammatories and colchicine and see how it improves over the next few days. Naproxen 500 mg twice daily with food for the next 7 to 10 days. Colchicine 3 times daily for the first 2 or 3 days to supplement with the other anti-inflammatories. Hold if it causes upset stomach or diarrhea. Add Tylenol if needed for pains 500-650 mg every 4-6 hours. I sent prescriptions for an anti-inflammatory and the colchicine to [facility] your preferred pharmacy. Forms: PCP List Discharge Date/Time: 07/01/23 14:13
[2023-07-01] MEDS ORDERED: NAPROXEN 250 MG TABLET PO STA (13:55)
[2023-07-01] MEDS ORDERED: COLCHICINE 0.6 MG TABLET PO STA (13:55)
== END 2023-07-01 14:13 ==
LOC: ED 12:42
DX: M10.9 Gout, unspecified (principal); M79.672 Pain in left foot; I10 Essential (primary) hypertension
CPT/HCPCS: 99282; 99284; A9270

== ENCOUNTER 2023-08-01 08:00 | Outpatient (CLI) | payer MEDICAID ==
[2023-08-01 18:26] LABS: FECAL OCCULT BLOOD (FIT) NEGATIVE (NEGATIVE)
== END 2023-08-01 23:59 | disposition home or self-care (01) ==
LOC: LAB.R 08:00
PROVIDERS: ATTEND Internal Medicine
DX: Z12.11 Encounter for screening for malignant neoplasm of colon (principal)
CPT/HCPCS: 82274

== ENCOUNTER 2024-02-16 13:42 | Outpatient (CLI) | payer MEDICAID ==
[2024-02-16 18:14] LABS: BASOPHILS # (AUTO) 0.1 10^3/uL (0.0-0.1); BASOPHILS % (AUTO) 0.6 %; EOSINOPHILS # (AUTO) 0.2 10^3/uL (0.0-0.7); EOSINOPHILS % (AUTO) 1.6 %; HGB - HEMOGLOBIN 12.1 g/dL (14.0-18.0); LYMPHOCYTES # (AUTO) 2.5 10^3/uL (1.5-3.5); LYMPHOCYTES % (AUTO) 23.4 %; MEAN CORPUSCULAR HEMOGLOBIN 24.4 pg (27.0-31.0); MEAN CORPUSCULAR HGB CONC 30.3 g/dL (32.0-36.0); MEAN CORPUSCULAR VOLUME 80.8 fL (80.0-94.0); MEAN PLATELET VOLUME 10.6 fL (7.4-11.4); MONOCYTES # (AUTO) 0.9 10^3/uL (0.0-1.0); MONOCYTES % (AUTO) 8.2 %; NEUTROPHILS % (AUTO) 65.6 %; PLT - PLATELET COUNT 261 10^3/uL (130-450); RED BLOOD COUNT 4.95 10^6/uL (4.70-6.10); RED CELL DISTRIBUTION WIDTH 15.8 % (12.0-15.0); WHITE BLOOD COUNT 10.7 x10^3/uL (4.8-10.8)
[2024-02-16 18:32] LABS: ALBUMIN 4.1 g/dL (3.2-5.5); ALBUMIN/GLOBULIN RATIO 1.1 (1.0-2.2); ALKALINE PHOSPHATASE 46 IU/L (42-121); ALT ALANINE AMINOTRANSFERASE 61 IU/L (10-60); AST ASPARTATE AMINOTRANSFERASE 26 IU/L (10-42); BILIRUBIN,TOTAL 0.5 mg/dL (0.2-1.0); BUN - BLOOD UREA NITROGEN 16 mg/dL (6-20); CALCIUM 9.3 mg/dL (8.5-10.3); CARBON DIOXIDE - CO2 31 mmol/L (21-32); CHLORIDE 100 mmol/L (101-111); CHOL/HDL RATIO 3.7 (<5.0); CHOLESTEROL 144 mg/dL; CREATININE 0.8 mg/dL (0.6-1.3); GFR - MDRD 100 (>89); GLUCOSE 93 mg/dL (74-104); HDL CHOLESTEROL 39 mg/dL; LDL CHOLESTEROL,CALCULATED 88 mg/dL; LDL/HDL RATIO 2.3 (<3.6); POTASSIUM 4.2 mmol/L (3.5-4.5); SODIUM 138 mmol/L (135-145); TOTAL PROTEIN 7.8 g/dL (6.4-8.9); TRIGLYCERIDES 83 mg/dL (48-352); URIC ACID 7.5 mg/dL (4.4-7.6); VLDL CHOLESTEROL 17 mg/dL
[2024-02-16 18:53] LABS: CREATININE,URINE 176.8 mg/dL; MICROALBUM/CREATININE RATIO,UR 21.5 ug/mg (<30.0); MICROALBUMIN,URINE 3.8 mg/dL
[2024-02-16 20:36] LABS: ESTIMATED AVERAGE GLUCOSE 123 mg/dL (70-100); HEMOGLOBIN A1c% 5.9 % (4.27-6.07)
== END 2024-02-16 13:43 | disposition home or self-care (01) ==
LOC: LAB.N 13:42
PROVIDERS: ATTEND Internal Medicine
DX: I11.0 Hypertensive heart disease with heart failure (principal); I50.30 Unspecified diastolic (congestive) heart failure; R73.03 Prediabetes; E55.9 Vitamin D deficiency, unspecified; N40.1 Benign prostatic hyperplasia with lower urinary tract symptoms; M79.662 Pain in left lower leg; Z87.39 Personal history of other diseases of the musculoskeletal system and connective tissue
CPT/HCPCS: 36415; 80053; 80061; 82043; 82306; 82570; 83036; 83721; 83880; 84153; 84550; 85025; 85379

== ENCOUNTER 2024-02-16 20:37 | Emergency (ER) | payer MEDICAID ==
[2024-02-16] MEDS ORDERED: iohexoL-300 100 ML VIAL ONE (21:33)
--- NOTE | 2024-02-16 21:59 | XRAY Report ---
PROCEDURE: Chest 1V INDICATIONS: DYSPNEA TECHNIQUE: One view of the chest was acquired. COMPARISON: 09/15/2018. FINDINGS: Surgical changes and devices: None. Lungs and pleura: No pleural effusions or pneumothorax. There is pulmonary vascular congestion and p ulmonary edema. No definite focal infiltrate. Mediastinum: Mediastinal contours appear normal. Heart size is enlarged. Bones and chest wall: No suspicious bony lesions. Overlying soft tissues appear unremarkable. IMPRESSION: Cardiomegaly and congestion. No definite focal infiltrate. No pneumothorax. Reviewed by: Florencio Kevin MD on 02/16/2024 9:58 PM PDT Approved by: Florencio Kevin MD on 02/16/2024 9:58 PM PDT Station ID: [id number]
[2024-02-16] MEDS: iohexoL-300 100 ML VIAL IVP ONE (22:10)
--- NOTE | 2024-02-16 22:12 | ED Physician Documentation ---
PD HPI DYSPNEA - Stated complaint Stated Complaint: SOA - Chief complaint Chief Complaint: Resp - History obtained from History obtained from: Patient - Additional information Additional information: He has a history of morbid obesity. He may have some CHF. He says he was diagnosed with leaky heart valves that resolved on its own a few years later on repeat echocardiogram. He says he been short of breath for months. He has exertional dyspnea and some orthopnea with pedal edema. There is no chest pain associated with it. His physician ordered labs 6 months ago which he finally had done today which were notable for a BNP modestly elevated at 142 and a D- dimer with mild elevation at 258. He was mildly anemic at 12.1 and had normal kidney function. Because of the elevated D-dimer he was referred here from the clinic for further evaluation and treatment. He says none of these complaints are really acute. He says has been on water pills in the past, but they made him feel more congested and so he prefers to juice celery. PD PAST MEDICAL HISTORY - Past Medical History Cardiovascular: Hypertension Respiratory: Asthma Neuro: Parkinson's Endocrine/Autoimmune: None GI: None : None HEENT: None Psych: Anxiety Musculoskeletal: Osteoarthritis, Chronic back pain, Other Derm: None - Past Surgical History Past Surgical History: Yes General: Other - Present Medications Home Medications: Ambulatory Orders Medication Instructions Recorded Confirmed Chlorthalidone 12.5 mg PO DAILY 03/27/21 08/12/22 Levothyroxine Sodium 200 mcg PO DAILY 03/27/21 08/12/22 [Levothyroxine] Potassium Chloride [Klor-Con 10] 1 tab PO DAILY 03/27/21 08/12/22 Cyclobenzaprine [Flexeril] 10 mg PO TID PRN #20 tablet 08/12/22 Indomethacin [Indocin] 25 mg PO BIDWM #20 08/12/22 Colchicine 0.6 mg PO TID PRN #10 tablet 07/01/23 Naproxen 500 mg PO BID #20 tab 07/01/23 Bumetanide [Bumex] 1 mg PO DAILY #7 tablet 02/16/24 Lisinopril [Zestril] 10 mg PO DAILY #30 tablet 02/16/24 Potassium Chloride 10 meq PO DAILY #7 cap 02/16/24 - Allergies Allergies/Adverse Reactions: Allergies Allergy/AdvReac Type Severity Reaction Status Date / Time hydrocodone Allergy Unknown Verified 09/25/23 09:11 morphine Allergy Unknown Verified 09/25/23 09:11 oxycodone Allergy Unknown Verified 09/25/23 09:11 - Social History Does the pt smoke?: No Smoking Status: Never smoker Does the pt drink ETOH?: No Does the pt have substance abuse?: No - Immunizations Immunizations are current?: Yes - POLST Patient has POLST: No PD ED PE NORMAL - Vitals Vital signs reviewed: Yes - General General: Alert and oriented X 3, No acute distress - HEENT HEENT: PERRL, EOMI - Neck Neck: Supple, no meningeal sign, No bony TTP - Cardiac Cardiac: RRR, No murmur - Respiratory Respiratory: No respiratory distress, Clear bilaterally - Abdomen Abdomen: Non tender - Derm Derm: Normal color, Warm and dry - Extremities Extremities: Other (1+ bilateral pitting pedal edema) - Neuro Neuro: Alert and oriented X 3, Normal speech Results - Vitals Vitals: Vital Signs - 24 hr 02/16/24 02/16/24 20:40 20:50 Temperature 36.6 C Heart Rate 80 70 Respiratory 34 H 19 Rate Blood Pressure 197/101 H 148/105 H O2 Saturation 97 94 Oxygen O2 Source Room air - EKG (time done) 2101 EKG releavant findings:: EKG personally interpreted by author of this note. Relevant findings are: Rate: Rate (enter#) (70) Rhythm: NSR [place]: Normal Intervals: Normal [place] QRS: Normal Ischemia: Normal ST segments - Rads (name of study) cxr- neg Relevant Findings:: Final report received, EMP independent interpretation of test cta chest neg Relevant Findings:: Final report received, EMP independent interpretation of test PD Medical Decision Making - ED course ED course: 53-year-old gentleman with subacute to chronic shortness of breath on exertion and orthopnea with underlying super morbid obesity and he does have a history of CHF it sounds like. His lungs are relatively clear and he does have mild pedal edema. Earlier in the day his labs were notable for modest elevations of both BNP and D-dimer with normal renal function. CT angiography of the chest was negative and his x-ray did show some concern for congestion. Think a diuretic would be helpful. He has been on Lasix in the past for similar symptoms and states that it made him feel like he had more fluid in his throat so chose Bumex instead. Discussed need for close follow-up with PCP with consideration for echocardiogram. Also discussion of weight loss options such as semaglutide or referral for gastric bypass given his BMI of 72. Departure - Departure Disposition: 01 Home, Self Care Clinical Impression: Congestive heart failure Qualifiers: Heart failure type: unspecified Heart failure chronicity: acute on chronic Qualified Code(s): I50.9 - Heart failure, unspecified Condition: Good Record reviewed to determine appropriate education?: Yes Instructions: ED CHF General Follow-Up: Stanislav Ragland MD [Provider Admit Priv/Credential] - Prescriptions: Bumetanide [Bumex] 1 mg PO DAILY #7 tablet Potassium Chloride 10 meq PO DAILY #7 cap Lisinopril [Zestril] 10 mg PO DAILY #30 tablet Comments: You are seen today for probably mild congestive heart failure. I think we can help your symptoms with a combination of a water pill and some blood pressure medication. I am prescribing an different water pill likely than the one you have been on the past since he had side effects from the water pill does take potassium out of your system so also a potassium supplement along with it. Follow-up with Dr. Ragland for reevaluation and follow-up. Suspect he may order a new echocardiogram, and or other testing. Recommend you also talk to him about medical options for weight loss such as semaglutide or referral for gastric bypass. Return for new or worsening symptoms. Forms: PCP List
--- NOTE | 2024-02-16 22:38 | CT Report ---
PROCEDURE: Angio Chest INDICATIONS: DYSPNEA, PE PROTOCOL HIGH DIMER CONTRAST: 100 ML OMNI 300 TECHNIQUE: After the administration of intravenous contrast, 2 mm axial images were acquired from the pulmonary apices to the posterior costophrenic angles during the arterial phase. In addition, 1 mm lung kernel and 5 mm soft tissue kernel reconstructions were performed. 3-dimensional coronal oblique maximum int ensity projection (MIP) reformats, 8 mm axial MIP, and 5 mm coronal and sagittal MPR reformats were t hen performed through the thorax. For radiation dose reduction, the following was used: automated exp osure control, adjustment of mA and/or kV according to patient size. COMPARISON: None. FINDINGS: Image quality: Excellent. Large vessels: No filling defects within the opacified main pulmonary arteries, accounting for motion and contrast timing. No evidence of acute aortic syndrome or aortic aneurysm. Lungs and pleura: No consolidation. No pleural effusions. No pneumothorax. No suspicious pulmonary n odules which require follow up. Mediastinum: Heart size is mildly enlarged. No pericardial effusion. No large vessel abnormality. No mediastinal adenopathy by size criteria. Chest wall and lower neck: Thyroid is unremarkable. No axillary or supraclavicular adenopathy by size . Bones: No aggressive osseous abnormality. Upper Abdomen: Unremarkable. IMPRESSION: 1. No large central pulmonary embolus. Distal subsegmental branches of bilateral pulmonary arteries a re suboptimally opacified. No thoracic aortic aneurysm or dissection. 2. Bilateral lungs are clear. Reviewed by: Florencio Villarreal MD on 02/16/2024 10:37 PM PDT Approved by: Florencio Villarreal MD on 02/16/2024 10:37 PM PDT Station ID: [id number]
[2024-02-16 23:10] VITALS: BP 170/86; O2SAT 96
[2024-02-16] MEDS: POTASSIUM CHLORIDE 20 MEQ TABLET PO STA (23:10)
[2024-02-16] MEDS: BUMETANIDE 1 MG TABLET PO STA (23:10)
== END 2024-02-16 23:54 | disposition home or self-care (01) ==
LOC: ED 20:37
DX: I50.9 Heart failure, unspecified (principal); E66.01 Morbid (severe) obesity due to excess calories; Z68.45 Body mass index [BMI] 70 or greater, adult
CPT/HCPCS: 36415; 71045; 71275; 93005; 99284; A9270; Q9967; 80053; 80061; 82043; 82306; 82570; 83036; 83721; 83880; 84153; 84550; 85025; 85379

== ENCOUNTER 2024-04-01 17:55 | Emergency (ER) | payer MEDICAID ==
[2024-04-01 18:15] VITALS: BP 126/100; O2SAT 95
--- NOTE | 2024-04-01 18:36 | ED Physician Documentation ---
PD HPI SKIN - Stated complaint Stated Complaint: R LEG LAC - Chief complaint Chief Complaint: Wound - Additional information Additional information: 53-year-old female with history of hypertension, prediabetes, asthma, hypothyroidism, morbid obesity, osteoarthritis, chronic/recurrent abscesses presents emergency department for right thigh abscess. Patient says that he gets multiple recurrent abscesses recently had an abscess incised and drained about a week ago has had no issues since then went to urgent care to have it drained again as it had come back bigger and they sent him to the emergency department for further evaluation as they thought it was too big to incise and drain in the urgent care. Pt denies fevers and chills. PD PAST MEDICAL HISTORY - Past Medical History Past Medical History: Yes Cardiovascular: Hypertension Respiratory: Asthma Neuro: Parkinson's Endocrine/Autoimmune: HyPERthyroidism GI: None : None HEENT: None Psych: Anxiety Musculoskeletal: Osteoarthritis, Chronic back pain, Other Derm: None - Past Surgical History Past Surgical History: Yes General: Other - Present Medications Home Medications: Ambulatory Orders Medication Instructions Recorded Confirmed Chlorthalidone 12.5 mg PO DAILY 03/27/21 08/12/22 Levothyroxine Sodium 200 mcg PO DAILY 03/27/21 08/12/22 [Levothyroxine] Potassium Chloride [Klor-Con 10] 1 tab PO DAILY 03/27/21 08/12/22 Cyclobenzaprine [Flexeril] 10 mg PO TID PRN #20 tablet 08/12/22 Indomethacin [Indocin] 25 mg PO BIDWM #20 08/12/22 Colchicine 0.6 mg PO TID PRN #10 tablet 07/01/23 Naproxen 500 mg PO BID #20 tab 07/01/23 Bumetanide [Bumex] 1 mg PO DAILY #7 tablet 02/16/24 Lisinopril [Zestril] 10 mg PO DAILY #30 tablet 02/16/24 Potassium Chloride 10 meq PO DAILY #7 cap 02/16/24 Doxycycline Hyclate 100 mg PO BID #14 cap 04/02/24 - Allergies Allergies/Adverse Reactions: Allergies Allergy/AdvReac Type Severity Reaction Status Date / Time hydrocodone Allergy Unknown Verified 04/01/24 18:05 morphine Allergy Unknown Verified 04/01/24 18:05 oxycodone Allergy Unknown Verified 04/01/24 18:05 - Social History Does the pt smoke?: No Smoking Status: Never smoker Does the pt drink ETOH?: No Does the pt have substance abuse?: No - Immunizations Immunizations are current?: Yes - POLST Patient has POLST: No PD ED PE NORMAL - Vitals Vital signs reviewed: Yes - General General: Alert and oriented X 3, No acute distress, Other (morbidly obese. ) - Derm Derm: Other (>10 large fluctulant fluid collection to posterior right thigh with smaller one medially about 3cm) - Extremities Extremities: No edema, No calf tenderness / cord Results - Vitals Vitals: Oxygen O2 Source Room air - Labs Labs: Laboratory Tests 04/01/24 04/01/24 23:00 23:00 WBC 16.4 H RBC 4.94 Hgb 12.3 L Hct 38.7 L MCV 78.3 L MCH 24.9 L MCHC 31.8 L RDW 16.2 H Plt Count 233 MPV 11.3 Neut # (Auto) 11.8 H Lymph # (Auto) 3.2 Nuckolls # (Auto) 1.3 H Eos # (Auto) 0.0 Baso # (Auto) 0.1 Absolute Nucleated RBC 0.00 Nucleated RBC % 0.0 Sodium 137 Potassium 4.2 Chloride 102 Carbon Dioxide 27 Anion Gap 8.0 BUN 10 Creatinine 0.8 Estimated GFR (MDRD) 100 Glucose 100 Calcium 9.2 Magnesium 2.0 Total Bilirubin 0.8 AST 19 ALT 19 Alkaline Phosphatase 39 L Total Protein 8.0 Albumin 3.9 Globulin 4.1 Albumin/Globulin Ratio 1.0 Lipase 10 L Procedures - Abscess I&D (location) right posterior thigh Preparation: Betadine, Lidocaine 2%, With epi Incision: Incised with scalpel, Other (>100cc of jose blood clots extracteed with suction) Other: Pt tolerated well, Dressing applied PD Medical Decision Making - ED course ED course: 53-year-old male presents emergency department for what he was concern of a focal fluid collection to the right posteriorm Thigh just below gluteus. An incision and drainage was complete see procedure note for further details after a small incision was made at the most fluctuant point of the fluid collection a large amount of blood was suctioned there appeared to be multiple clots without any purulent drainage. We had a difficult time stopping the bleeding mostly to the medial incision and drainage subcutaneous TXA was injected which significantly slowed down the bleeding. He has been having hard time controlling the bleeding and it did not end up being an abscess a CT with contrast was complete for further evaluation of patient's right lower extremity. Unfortunately these results had not gone back yet report was given to ER physician to further manage the patient's care who will end up discharging the patient. Departure - Departure Disposition: Home, Self Care Clinical Impression: Keloid, Morbid obesity Prescriptions: Doxycycline Hyclate 100 mg PO BID #14 cap Comments: Thank you for allowing us to care for you today at [facility]. You have what appears to be a large keloid involving the left Posterior thigh. This evening was incised and drained however due to persistent bleeding we did place some absorbable sutures. These will resorb on their own. You will need to establish yourself with a primary care doctor and they will likely need to refer you to a specialist to have this area further evaluated and possibly excised. I have written a prescription for an oral antibiotic. Please fill this prescription and begin taking it tomorrow morning with food. If it anytime you have new or worsening symptoms or if you develop any signs of worsening infection around the area of your keloid please return to the emergency department immediately for reevaluation. Forms: PCP List Discharge Date/Time: 04/02/24 02:25
[2024-04-01] MEDS: BUPIVACAINE 0.25%-EPI 1:200000 PF 30 ML VIAL SUBQ ONE (20:15)
[2024-04-01] MEDS ORDERED: LIDOCAINE 2%-EPI 1:100000 20 ML MDV ONE (20:17)
[2024-04-01] MEDS: BUPIVACAINE 0.5%-EPI 1:200000 PF 30 ML VIAL SUBQ ONE (20:20)
[2024-04-01] MEDS: LIDOCAINE MPF 2%-EPI 1:200000 10 ML VIAL SUBQ SCH (20:46)
[2024-04-01] MEDS ORDERED: iohexoL-300 100 ML VIAL ONE (22:32)
[2024-04-01 23:24] LABS: BASOPHILS # (AUTO) 0.1 10^3/uL (0.0-0.1); BASOPHILS % (AUTO) 0.3 %; EOSINOPHILS % (AUTO) 0.2 %; HCT - HEMATOCRIT 38.7 % (42.0-52.0); HGB - HEMOGLOBIN 12.3 g/dL (14.0-18.0); LYMPHOCYTES # (AUTO) 3.2 10^3/uL (1.5-3.5); LYMPHOCYTES % (AUTO) 19.5 %; MEAN CORPUSCULAR HEMOGLOBIN 24.9 pg (27.0-31.0); MEAN CORPUSCULAR HGB CONC 31.8 g/dL (32.0-36.0); MEAN CORPUSCULAR VOLUME 78.3 fL (80.0-94.0); MEAN PLATELET VOLUME 11.3 fL (7.4-11.4); MONOCYTES # (AUTO) 1.3 10^3/uL (0.0-1.0); NEUTROPHILS # (AUTO) 11.8 10^3/uL (1.5-6.6); NEUTROPHILS % (AUTO) 71.6 %; PLT - PLATELET COUNT 233 10^3/uL (130-450); RED BLOOD COUNT 4.94 10^6/uL (4.70-6.10); RED CELL DISTRIBUTION WIDTH 16.2 % (12.0-15.0); WHITE BLOOD COUNT 16.4 x10^3/uL (4.8-10.8)
[2024-04-01 23:47] LABS: ALBUMIN 3.9 g/dL (3.2-5.5); BILIRUBIN,TOTAL 0.8 mg/dL (0.2-1.0); CALCIUM 9.2 mg/dL (8.5-10.3); CREATININE 0.8 mg/dL (0.6-1.3); POTASSIUM 4.2 mmol/L (3.5-4.5)
[2024-04-02] MEDS: iohexoL-300 100 ML VIAL IVP ONE (00:28)
--- NOTE | 2024-04-02 00:35 | CT Report ---
PROCEDURE: Lower Extremity RT W INDICATIONS: appeared to be large abscess to posteror upper TECHNIQUE: After administration of contrast 3 mm axial sections acquired of the , with coronal and sagittal refo rmats. For radiation dose reduction, the following was used: automated exposure control, adjustment of mA and/or kV according to patient size. CONTRAST: Imni 300, 100mls COMPARISON: None. FINDINGS: Image quality: Excellent. Bones: No visualized fracture or dislocation. No suspicious osseous lesions. Soft tissues: There is an approximately 7.0 x 3.8 cm focus of skin thickening with fluid and air in the right posterior medial gluteal subcutaneous tissues. Remaining soft tissues demonstrate no inflam matory change. Muscular structures are within normal limits. IMPRESSION: There is a 7.0 x 3.8 x 5.5 focus of fluid and air with associated inflammatory change in the posterio r medial right gluteal subcutaneous tissues. Overall appearance is most consistent with abscess. Reviewed by: Diana Abbott MD on 04/02/2024 12:34 AM PDT Approved by: Diana Abbott MD on 04/02/2024 12:34 AM PDT Station ID: [id number]
--- NOTE | 2024-04-02 01:56 | ED Physician Documentation ---
ED Addendum - Addendum Addendum: 04/02/24 04:16 Patient 53-year-old male signed out to me by outgoing KRISTAL. Please see their documentation for further detail. Called to bedside as patient's nurse reports persistent bleeding from his procedural incision site. Examination of the patient demonstrates a hyper morbidly obese male in his latter 50s with multiple areas swelling and induration prominently on the posterior aspect of his proximal left thigh. The incision site, 4 cm in nature is identified and there is active persistent bleeding from the site. The surrounding tissue is neither erythematous and there is no appreciable rubor, purulence. History obtained from the patient is that he has had this for several months that has been progressively worse over the course of several years and that it is not noticeably changed from previous however he was online looking up things that could be causing this swelling and became concerned about it and decided to come to the emergency department. He denied systemic symptoms such as fevers or chills, nausea or vomiting. Overall clinical impression be consistent with keloid rather than an acute infected boil or abscess. He had a persistent amount of oozing and bleeding from the site and multiple attempts were made to control this bleeding includingInfiltration with lidocaine, TXA, epinephrine, packing, electrocautery without success. I did discuss his care with general surgery who after review of the case suggested suturing the incision site with large gauge sutures, in order to achieve tight wound closure. The wound was rinsed out once more and sealed with a total of six 2-0 Vicryl sutures. See procedure note attached. This did achieve hemostasis.He was subsequently dressed in Mepilex and given wound care and follow-up instructions as well as a course of doxycycline. He was encouraged to establish and follow-up with primary care and discussed return precautions for any developing signs of infection such as swelling, heat, redness, increasing pain. 04/02/24 04:20 Procedures - Laceration (location) Lower extremity left Length in cm: 4.5 Wound type: Linear Anesthesia: Lidocaine 1% with epi Wound preparation: Irrigated copiously NS Skin layer closure: Other (Skin closure with six 2-0 Vicryl) Other: Patient tolerated well
[2024-04-02] MEDS: DOXYCYCLINE 100 MG TABLET PO STA (02:07)
== END 2024-04-02 02:25 | disposition home or self-care (01) ==
LOC: ED 17:55
DX: L91.0 Hypertrophic scar (principal); L76.21 Postprocedural hemorrhage of skin and subcutaneous tissue following a dermatologic procedure; E66.01 Morbid (severe) obesity due to excess calories; Z68.44 Body mass index [BMI] 60.0-69.9, adult
CPT/HCPCS: 10061; 36415; 73701; 80053; 83690; 83735; 85025; 99283; 99284; A9270; Q9967

== ENCOUNTER 2025-05-21 06:01 | Inpatient (IN) ==
--- OUTSIDE RECORDS SUMMARY | 2025-05-21 06:30 | EXTERNAL MEDICAL SUMMARY RPT | Continuity of Care Document ---
Author Organization [facility] [place] Address [address] [place] [id number] Phone Problems date description facility 2025-03-20 15:58 Hypothyroidism, unspecified [facility] 2025-03-20 15:58 Essential (primary[facility]ensio [facility] 2025-03-20 15:58 [facility]out, [facility]25-03-20 15[facility]58 [facility]20 15:58 [facility] for [facility] 2025-03-21 00:05 Hypothyroidism, unspecified [facility] 2025-03-21 00:05 Essential (primary) hypertensio n [facility] 2025-03-21 00:05 Gout, unspecified [facility] 2025-03-21 00:05 [facility] 2025-03-21 00:05 [facility] 2025-03-25 11:00 Hypothyroidism, unspecified [facility] 2025-04-11 00:05 Anemia, unspecified [facility] 2025-04-14 15:08 Anemia, unspecified [facility] 2025-04-15 16:45 Monoclonal gammopathy [facility] 2025-04-15 16:45 Anemia, unspecified [facility] 2025-04-15 16:45 Hypothyroidism, unspecified [facility] 2025-04-15 16:45 Ob[facility], class 3 [facility] 2025-04-15 16:45 Obstructive sleep apnea (adult) (pediatric) [facility] 2025-04-15 16:45 [facility] 2025-04-23 09:30 [facility]ations [facility] 2025-05-08 11:19 Anemia, unspecified [facility] 2025-05-08 11:56 Anemia, unspecified [facility] 2025-05-08 12:58 Malignant neoplasm of thyroid [facility] 2025-05-08 12:59 Malignant neoplasm of thyroid [facility] 2025-05-08 12:59 Monoclonal gammopathy [facility] 2025-05-08 12:59 Anemia, unspecified [facility] 2025-05-08 14:16 [facility] 2025-05-08 14:16 Anemia, unspecified [facility] 2025-05-08 14:16 Encounter for genera l adult medical examination without abnormal findings [facility] 2025-05-08 14:16 Personal history of malignant n eoplasm of thyroid [facility] 2025-05-09 00:03 Malignant neoplasm of thyroid [facility] 2025-05-09 00:03 Monoclonal gammopathy [facility] 2025-05-09 00:03 Anemia, unspecified [facility] 2025-05-09 10:01 Monoclonal gammopathy [facility] 2025-05-09 10:02 Monoclonal gammopathy [facility] 2025-05-13 14:21 Monoclonal gammopathy [facility] 2025-05-14 07:55 Monoclonal gammopathy [facility] 2025-05-14 07:56 Monoclonal gammopathy [facility] 2025-05-15 15:07 Monoclonal gammopathy [facility] 2025-05-16 07:48 Monoclonal gammopathy [facility] 2025-05-16 09:45 Anemia, unspecified [facility] 2025-05-20 13:25 Monoclonal gammopathy [facility] Results/Labs test date facility value unit notes Result panel 1 NUCLEATED RED BLOOD CELLS AUTO 2025-03-20 16:20 [facility] 0.0 /100wbc (missing) NRBC ABSOLUTE COUNT (AUTO) 2025-03-20 [facility]20 [facility] 0.[facility] x10 3/ul (missing) BASOPHILS # (AUTO) 2025-03-20 16:20 [facility] 0.1 10 3/ul (missing) EOSINOPHILS # (AUTO) 2025-03-20 16:20 [facility] 0.1 10 3/ul (missing) THYROID STIMULATING HORMONE 2025-03-20 16:20 [facility] 0.23 uiu/ml (missing) BILIRUBIN,TOTAL 2025-03-20 16:20 [facility] 0.4 mg /dl As of March 2023 testing method has changed, this may include reference ranges. CREATININE 2025-03-20 16:20 [facility] 0.7 mg/dl As of March 2023 testing method has changed, this may include reference ranges. MONOCYTES # (AUTO) 2025-03-20 16:20 [facility] 1.0 10 3/ul (missing) ALBUMIN/GLOBULIN RATIO 2025-03-20 16:20 [facility] 1.1 (missing) (missing) FREE T4 (FREE THYROXINE) 2025-03-20 16:20 [facility] 1.27 ng/dl Biotin at >10 ng/mL concentration may cause significant interference. CHLORIDE 2025-03-20 16:20 [facility] 102 mmol/l As of March 2023 testing method has changed, this may include reference ranges. VLDL CHOLESTEROL 2025-03-20 16:20 [facility] 11 m g/dl (missing) WHITE BLOOD COUNT 2025-03-20 16:20 [facility] 11.8 x10 3/ul (missing) LDL CHOLESTEROL,CALCULA SANJAY 2025-03-20 16:20 [facility] 115 mg/dl Social History date description facility
--- NOTE | 2025-05-21 06:32 | ED Physician Documentation ---
History of Present Illness Stated complaint Stated Complaint: ABD PX/FEVER Chief complaint Chief Complaint: General Additonal information Additional information: Patient is a 54-year-old male presenting with abdominal pain that began over the last few days. He states that he has been experiencing constipation for the last couple days which is abnormal for him, and describes a diffuse abdominal discomfort throughout his abdomen. He states that this does not radiate to his back. He states that he has had diverticulitis in the past but this feels different. He rates the pain as an 8 out of 10. He denies fever, chills, nausea, vomiting. States that the pain is hard to localize. He denies any dark tarry stools, bloody stools. He denies any changes to urination. Patient states that he has had no recent medication changes. Denies any new exposures or foods. Review of Systems Status of ROS: See HPI Meds/Allgy Home Medications Ambulatory Orders Medication Instructions Recorded Confirmed omega 5-uib-sgw-fish oil 1,000 mg 1 cap PO QDAY 05/21/25 (120 mg-180 mg) capsule zinc sulfate 25 mg zinc (110 mg) 25 mg PO QDAY 4 05/21/25 tablet (Orazinc) levothyroxine 200 mcg capsule 400 mcg PO .Sat, Sun 05/21/25 levothyroxine 200 mcg tablet 200 mcg PO .COMPLEX 04/1505/21/25 (Levoxyl) Allergies Allergies Allergy/AdvReac Type Severity Reaction Status Date / Time hydrocodone Allergy Severe Nausea, Verified 04/15/25 14:58 sweating morphine Allergy Severe Nausea, Verified 04/15/25 14:58 sweating oxycodone Allergy Severe Nausea, Verified 04/15/25 14:58 sweating PFSH Active Problems All Active Problems (Updated 05/21/25 @ 08:44 by Cornelio Salcido MD) Diverticulitis of jejunum (Acute) Healthcare maintenance (Acute) IgA monoclonal gammopathy (Acute) Anemia (Chronic) Polyphagia (Chronic) Screening cholesterol level (Chronic) Elevated blood pressure reading in office without diagnosis of hypertension (Chronic) Body mass index [BMI] 60.0-69.9, adult (Chronic) Financial insecurity (Chronic) Headache (Chronic) Hypothyroidism (Chronic) Hordeolum (Chronic) Chronic insomnia (Chronic) Heart palpitations (Chronic) Balance problem (Chronic) Lower extremity weakness (Chronic) Class 3 obesity (Chronic) Vitamin D deficiency (Chronic) Venous insufficiency (Chronic) 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) Obstructive sleep apnea (Chronic) Spinal stenosis of lumbar region (Chronic) Gout (Chronic) Genetic torsion dystonia (Chronic) Pes planus of both feet (Chronic) MARIN (nonalcoholic steatohepatitis) (Chronic) Essential hypertension, benign (Chronic) Degenerative joint disease (DJD) of lumbar spine (Chronic) Degeneration of cervical intervertebral disc (Chronic) Screening for colorectal cancer (Chronic) Cervical stenosis of spinal canal (Chronic) Intertriginous candidiasis (Chronic) Blurred vision (Chronic) Benign prostatic hyperplasia with lower urinary tract symptoms (Chronic) Anxiety and depression (Chronic) Asthma (Chronic) Left ankle pain (Chronic) Rotator cuff tendinitis (Chronic) Back spasm (Chronic) Medical History Medical History Abscess of right leg Cervical vertebral fracture History of diverticulitis History of thyroid cancer History of thyroidectomy + [place], 2014, T2N0 Surgical History Surgical History H/O thyroidectomy Has had two surgeries r/t thyroid cancer Family History Family History Father Heart disease CAD (coronary artery disease) Heart attack HLP (hyperkeratosis lenticularis perstans) Mother Pancreatic cancer Thyroid cancer Sister Dystonia Social History Social History (Updated 05/08/25 @ 14:02 by Dionne Bynum MD) Smoking Status: Never smoker Second hand tobacco smoke exposure: No Do you dip or chew tobacco?: No Do you vape?: No Living arrangement: At home Marital Status: Single Living Condition: With family Support Person: Yes Physical Activity: None Level: Independent Do you feel safe in your home environment?: Yes History of physical, verbal, emotional, or financial abuse?: No ETOH Use: None Substance Use: denies use POLST Patient has POLST: No Exam Exam Vital Signs: Vital Signs x48h Temp Pulse Resp BP Pulse Ox 05/21/25 09:00 81 15 177/88 H 97 05/21/25 06:20 37.1 C 90 20 164/97 H 96 Constitutional Appears mildly uncomfortable, sitting in examination bed. Nontoxic. No acute distress. HENMT normocephalic Eyes PERRL, conjunctivae normal and no scleral icterus Respiratory breath sounds equal bilaterally, normal respiratory effort, no wheezes and no rales Distant lung sounds secondary to habitus Cardiovascular normal heart rate noted, regular rhythm noted and no murmur Gastrointestinal Abdomen soft, with tenderness in all 4 quadrants, as well as rebound tenderness in all 4 quadrants. No guarding, no rigidity, no peritoneal signs Genitourinary no CVA tenderness Back/Pelvis no thoracic spine tenderness and no lumbar spine tenderness Neurology dye colorist dyer II-XII intact and GCS 15 Psychiatry mental status grossly normal and oriented x3 Results Vitals Vitals: Vital Signs - 24 hr 05/21/25 06:20 05/21/25 09:00 05/21/25 09:03 Temperature 37.1 C Temperature Source Temporal Artery Scan Pulse Rate 90 81 Respiratory Rate 20 15 Blood Pressure 164/97 H 177/88 H O2 Saturation 96 97 O2 Source Room air Room air Pain Intensity 8 8 Oxygen O2 Source Room air Labs Labs: Laboratory Tests 05/21/25 06:43 WBC 20.8 H RBC 5.41 Hgb 13.1 L Hct 41.8 L MCV 77.3 L MCH 24.2 L MCHC 31.3 L RDW 16.2 H Plt Count 256 MPV 10.5 Neut # (Auto) Not Reportable Lymph # (Auto) Not Reportable [place] # (Auto) Not Reportable Eos # (Auto) Not Reportable Baso # (Auto) Not Reportable Absolute Nucleated RBC Not Reportable Total Counted 100 Band Neuts % (Manual) 5 Abnorm Lymph % (Manual) 0 Nucleated RBC % Not Reportable Neutrophils # (Manual) 17.7 H Lymphocytes # (Manual) 1.9 Monocytes # (Manual) 1.2 H Eosinophils # (Manual) 0.0 Basophils # (Manual) 0.0 Differential Comment MANUAL DIFFERENTIAL WBC Morphology NORMAL APPEARANCE Platelet Estimate NORMAL (130-450,000) Platelet Morphology NORMAL APPEARANCE RBC Morph Micro Appear NORMAL APPEARANCE Sodium 137 Potassium 4.0 Chloride 103 Carbon Dioxide 25 Anion Gap 9.0 BUN 23 H Creatinine 0.9 Estimated GFR (MDRD) 87 L Glucose 126 H Calcium 9.6 Total Bilirubin 0.5 AST 17 ALT 21 Alkaline Phosphatase 48 Total Protein 8.4 Albumin 4.3 Globulin 4.1 Albumin/Globulin Ratio 1.0 Lipase 15 PD Medical Decision Making ED course ED course: Assessment: This patient was seen shortly before my signout to Dr. Pancho Salcido. He has significant abdominal pain, but does not appear distended or peritonitic, but despite this I have concern that he has rebound discomfort throughout his abdomen, with a history of diverticulitis. Would not put a perforation outside the room a possibility. Could also be potentially colitis, pancreatitis, cholecystitis. After Valium this patient, I did offer him pain medications which he refused stating that he did not like the way the pain medications made him feel. Labs, and CT of abdomen were ordered prior to my signout and pending before patient was signed out to Dr. Kana Salcido. Please refer to Dr. Salcido's note for the remainder of this patient's care in the ER completed after my signout. Discharge Plan Discharge Patient Disposition: [facility] DC/Xfer Condition: Stable Clinical Impression: Diverticulitis of jejunum
[2025-05-21 06:49] LABS: HCT - HEMATOCRIT 41.8 % (42.0-52.0); HGB - HEMOGLOBIN 13.1 g/dL (14.0-18.0); MEAN PLATELET VOLUME 10.5 fL (7.4-11.4); PLT - PLATELET COUNT 256 10^3/uL (130-450); RED CELL DISTRIBUTION WIDTH 16.2 % (12.0-15.0)
[2025-05-21 06:52] LABS: ABNORMAL LYMPHS % (MANUAL) 0 %; BASOPHILS # (MANUAL) 0.0 10^3/uL (0-0.1); EOSINOPHILS # (MANUAL) 0.0 10^3/uL (0-0.7)
[2025-05-21 07:05] LABS: ALT ALANINE AMINOTRANSFERASE 21.0 IU/L (10-60); AST ASPARTATE AMINOTRANSFERASE 17.0 IU/L (10-42); BUN - BLOOD UREA NITROGEN 23.0 mg/dL (6-20); CARBON DIOXIDE - CO2 25.0 mmol/L (21-32); CREATININE 0.9 mg/dL (0.6-1.3); GFR - MDRD 87.0 (>89)
[2025-05-21 07:23] LABS: BAND NEUTROPHILS % (MANUAL) 5 %; LYMPHOCYTES # (MANUAL) 1.9 10^3/uL (1.5-3.5); LYMPHOCYTES % (MANUAL) 9 %; MONOCYTES # (MANUAL) 1.2 10^3/uL (0.0-1.0); NEUTROPHILS # (MANUAL) 17.7 10^3/uL (1.5-6.6); PLATELET ESTIMATE, MANUAL NORMAL (130-450,000) (NORMAL); PLATELET MORPHOLOGY NORMAL APPEARANCE (NORMAL); RBC MORPHOLOGY (MULTIPLE) NORMAL APPEARANCE (NORMAL); WBC MORPHOLOGY (MULTIPLE) NORMAL APPEARANCE (NORMAL)
--- NOTE | 2025-05-21 08:22 | CT Report ---
PROCEDURE: CT Abdomen/Pelvis WO INDICATIONS: diffuse abdominal pain, hx of diverticulitis TECHNIQUE: A CT scan of the abdomen and pelvis was performed without the use of intravenous contrast. Images were recorded and evaluated at appropriate window settings. Reformats: coronal and sagittal. For radiation dose reduction, the following was used: automated exposure control, adjustment of mA and/or kV according to patient size. COMPARISON: 03/27/2021. FINDINGS: Image quality: Diagnostic. Lower chest: Mild cardiomegaly. Extreme lung bases are clear. Liver: No contour-deforming mass. Gallbladder: No radiopaque stones or wall thickening. Biliary tree: No intrahepatic or extrahepatic dilation, accounting for age. Spleen: No splenomegaly. Pancreas: No pancreatic ductal dilation. Adrenals: No adrenal nodule. Kidneys and ureters: No hydronephrosis. No contour-deforming mass. Stomach, bowel and peritoneum: There is either a perforated loop of jejunum or there is simply intramural gas. Complete microperforation at the subjacent fat is suspected. Reference axial images 79-95 and coronal image 49 of series 7. Differential diagnosis includes perforated jejunal diverticulitis. There is a ileus pattern. Other jejunal loops did not have any wall thickening or intramural gas. Moderately advanced sigmoid diverticulosis without evidence of acute diverticulitis.. No pathologic free fluid. Lymph nodes: No central or retroperitoneal adenopathy. Vessels: No infrarenal aortic aneurysm. Reproductive organs: Unremarkable. Bladder: No abnormal bladder wall thickening. No calcified bladder stones. Pelvic lymph nodes: No adenopathy by size criteria. Bones: No aggressive osseous abnormality. Other: No significant ventral or inguinal hernia. IMPRESSION: There is either a perforated loop of jejunum or extensive intramural gas without perforation. Microperforation is suspected. Differential diagnosis includes perforated jejunal diverticulitis. Ileus pattern. Mild cardiomegaly Above discussed with Chandler Salcido MD at the time of dictation. Reviewed by: Jean Obregon MD on 05/21/2025 8:21 AM PDT Approved by: Jean Obregon MD on 05/21/2025 8:21 AM PDT Station ID: [id number]
--- NOTE | 2025-05-21 08:23 | ED Physician Documentation ---
ED Addendum Addendum Addendum: 54-year-old male signed out to me by Dr. Francis, see his note for full H&P on this patient. Briefly this is a 54-year-old gentleman with a history of recurrent diverticulitis. Started with abdominal pain last night and continued to have abdominal pain today. No fevers or chills. CT scan shows possible intraluminal gas versus microperforation with jejunal diverticulitis. Discussed with Dr. Mars, general surgery on-call who recommends admission to the hospitalist service on IV antibiotics. No formal consult was placed at this time. The hospitalist states that if he needs a formal consult he will contact Dr. Mars. Patient is well-appearing, nontoxic. Afebrile. Started on IV Zosyn. He does not want any narcotic pain medication at this time, therefore was given IV ketorolac. Patient will be admitted for further care. Dr. Doherty to admit the patient. This document was made in part using voice recognition software. While efforts are made to proofread this document, sound alike and grammatical errors may occur. Discharge Plan Discharge Patient Disposition: [facility] DC/Xfer Condition: Stable Clinical Impression: Diverticulitis of jejunum
[2025-05-21] MEDS: PIPERACILLIN/TAZOBACTAM 3.375 GM in SODIUM CHLORIDE 0.9% MINIBAG 100 ML IV STA (09:03)
[2025-05-21] MEDS: KETOROLAC 30 MG/ML VIAL IVP STA (09:03)
[2025-05-21] MEDS: SODIUM CHLORIDE 0.9% 1,000 ML IV STA (09:04)
--- OUTSIDE RECORDS SUMMARY | 2025-05-21 09:21 | EXTERNAL MEDICAL SUMMARY RPT | Continuity of Care Document ---
Author Organization [facility] Address [address] [place] [id number] Phone Problems date description facility 2025-03-20 15:58 Hypothyroidism, unspecified [facility] 2025-03-20 15:58 Essential (primary) [facility]ensio [facility] 2025-03-20 15:58 Gout, [facility] 2025-03-20 15:58 [facility] 2025-03-20 15:58 Encounter for screening for lip oid disorders [facility] 2025-03-21 00:05 Hypothyroidism, unspecified [facility] 2025-03-21 00:05 Essential (primary) hypertensio n [facility] 2025-03-21 00:05 Gout, unspecified [facility] 2025-03-21 00:05 [facility]agia [facility] 2025-03-21 00:05 Encounter for screening for lip oid disorders [facility] 2025-03-25 11:00 Hypothyroidism, unspecified i [facility] 2025-04-11 00:05 Anemia, unspecified [facility] 2025-04-14 15:08 Anemia, unspecified [facility] 2025-04-15 16:45 Monoclonal gammopathy [facility] 2025-04-15 16:45 Anemia, unspecified [facility] 2025-04-15 16:45 Hypothyroidism, unspecified i [facility] 2025-04-15 16:45 Obesity, class 3 [facility] 2025-04-15 16:45 Obstructive sleep apnea (adult) (pediatric) [facility] 2025-04-15 16:45 Palpitations [facility] 2025-04-23 09:30 Palpitations [facility] 2025-05-08 11:19 Anemia, unspecified [facility] 2025-05-08 11:56 Anemia, unspecified [facility] 2025-05-08 12:58 Malignant neoplasm of thyroid [facility] 2025-05-08 12:59 Malignant neoplasm of thyroid [facility] 2025-05-08 12:59 Monoclonal gammopathy [facility] 2025-05-08 12:59 Anemia, unspecified [facility] 2025-05-08 14:16 [facility] 2025-05-08 14:16 Anemia, unspecified [facility] 2025-05-08 14:16 Encounter for genera l adult medical examination without abnormal findings [facility] 2025-05-08 14:16 Personal history of malignant n eoplasm of thyroid [facility] 2025-05-09 00:03 Malignant neoplasm of thyroid [facility] 2025-05-09 00:03 Monoclonal gammopathy [facility] 2025-05-09 00:03 Anemia, unspecified [facility] 2025-05-09 10:01 Monoclonal gammopathy [facility] 2025-05-09 10:02 Monoclonal gammopathy [facility] 2025-05-13 14:21 Monoclonal gammopathy [facility] 2025-05-14 07:55 Monoclonal gammopathy [facility] 2025-05-14 07:56 Monoclonal gammopathy [facility] 2025-05-15 15:07 Monoclonal gammopathy [facility] 2025-05-16 07:48 Monoclonal gammopathy [facility] 2025-05-16 09:45 Anemia, unspecified [facility] 2025-05-20 13:25 Monoclonal gammopathy [facility] Results/Labs test date facility value unit notes Result panel 1 NUCLEATED RED BLOOD CELLS AUTO 2025-03-20 16:20 [facility] 0.0 /100wbc (missing) NRBC ABSOLUTE COUNT (AUTO) 2025-03-20 16:20 [facility] x10 3/ul (missing) BASOPHILS # (AUTO) 2025-03-20 16:20 [facility] 0.1 10 3/ul (missing) EOSINOPHILS # (AUTO) 2025-03-20 16:20 [facility] 0.1 10 3/ul (missing) THYROID STIMULATING HORMONE 2025-03-20 16:20 [facility] 0.23 uiu/ml (missing) BILIRUBIN,TOTAL 2025-03-20 16:20 [facility] 0.4 mg /dl As of March 2023 testing method has changed, this may include reference ranges. CREATININE 2025-03-20 16:20 [facility] 0.7 mg/dl As of March 2023 testing method has changed, this may include reference ranges. MONOCYTES # (AUTO) 2025-03-20 16:20 [facility] 1.0 10 3/ul (missing) ALBUMIN/GLOBULIN RATIO 2025-03-20 16:20 [facility] 1.1 (missing) (missing) FREE T4 (FREE THYROXINE) 2025-03-20 16:20 [facility] 1.27 ng/dl Biotin at >10 ng/mL concentration may cause significant interference. CHLORIDE 2025-03-20 16:20 [facility] 102 mmol/l As of March 2023 testing method has changed, this may include reference ranges. VLDL CHOLESTEROL 2025-03-20 16:20 [facility] 11 m g/dl (missing) WHITE BLOOD COUNT 2025-03-20 16:20 [facility] 11.8 x10 3/ul (missing) LDL CHOLESTEROL,CALCULA SANJAY 2025-03-20 16:20 [facility] 115 mg/dl Social History date description facility
[2025-05-21] MEDS ORDERED: ONDANSETRON 4 MG/2 ML VIAL IVP PRN (09:32)
[2025-05-21] MEDS ORDERED: ACETAMINOPHEN 325 MG TABLET PO PRN (09:32)
[2025-05-21] MEDS: SODIUM CHLORIDE FLUSH 0.9% 10 ML SYRINGE IVP SCH (10:30)
[2025-05-21] MEDS: PIPERACILLIN/TAZOBACTAM 3.375 GM in SODIUM CHLORIDE 0.9% MINIBAG 100 ML IV SCH (13:04)
[2025-05-21] MEDS: LACTATED RINGERS 1,000 ML IV SCH (13:04)
[2025-05-21 14:15] LABS: HCT - HEMATOCRIT 33.2 % (42.0-52.0); HGB - HEMOGLOBIN 10.5 g/dL (14.0-18.0); MEAN PLATELET VOLUME 10.7 fL (7.4-11.4); PLT - PLATELET COUNT 231.0 10^3/uL (130-450); RED CELL DISTRIBUTION WIDTH 16.2 % (12.0-15.0)
[2025-05-21] MEDS: ACETAMINOPHEN 1,000 MG/100 ML 1,000 MG/100 ML BAG IV PRN (14:19)
[2025-05-21] MEDS: PANTOPRAZOLE 40 MG VIAL IVP SCH (14:19)
[2025-05-21 14:25] LABS: INR 1.5 (0.8-1.2); PT - PROTHROMBIN TIME 16.4 secs (9.9-12.6)
[2025-05-21] MEDS: LACTATED RINGERS 500 ML IV ONE (15:40)
[2025-05-21 15:51] LABS: FECAL OCCULT BLOOD (FIT) POSITIVE (NEGATIVE)
--- NOTE | 2025-05-21 19:07 | HISTORY & PHYSICAL EXAMINATION ---
Chief Complaint Chief Complaint Chief Complaint: abdominal pain History of Present Illness Admitted From Admitted From:: home History Obtained From Records Reviewed: EMR History obtained from: patient Exam Limitations: none History of Present Illness HPI Comment/Other: 54 yo M with pmhx of diverticulitis x 1 in 2022, PUD requiring transfusion when he was 17 yo, hemorrhoids, Fe def anemia, thyroid ca s/p resection, now hypothyroidism, IBS, HTN, constipation, monoclonal gammopathy (planning bone marrow biopsy), intermittent palpiatations (recent cheek monitor, cardiology eval pending) presenting with abdominal pain. Notes pain started last night acutely after eating tacos. Located diffusely in periumbilical region and LUQ. Pt states he has been constipated x 3 days. No n/v. He makes juice with beets, watermelon, and pineapple which he has been drinking daily the past 3-4 days. Also takes Fe supplements every other day. Never had colonoscopy. In the ED he was given pip-tazo and ketorolac. Upon arrival to the floor he had 2 large melanotic stools. He denies etoh and other drug use. No NSAIDs. Not on blood thinners. Notes his hemorrhoids bleed occasionally. Meds/Allgy Home Medications Ambulatory Orders Medication Instructions Recorded Confirmed omega 4-qly-dia-fish oil 1,000 mg 1 cap PO DAILY 08/2605/21/25 (120 mg-180 mg) capsule zinc sulfate 25 mg zinc (110 mg) 25 mg PO DAILY 05/21/25 tablet (Orazinc) levothyroxine 200 mcg tablet 200 mcg PO .COMPLEX 04/1505/21/25 (Levoxyl) levothyroxine 50 mcg tablet See Rx Instructions PO .CO MPLEX 05/21/25 05/21/25 Allergies Allergies Allergy/AdvReac Type Severity Reaction Status Date / Time hydrocodone Allergy Severe Nausea, Verified 04/15/25 14:58 sweating morphine Allergy Severe Nausea, Verified 04/15/25 14:58 sweating oxycodone Allergy Severe Nausea, Verified 04/15/25 14:58 sweating PFSH Active Problems All Active Problems (Updated 05/21/25 @ 08:44 by Cornelio Salcido MD) Diverticulitis of jejunum (Acute) Healthcare maintenance (Acute) IgA monoclonal gammopathy (Acute) Anemia (Chronic) Polyphagia (Chronic) Screening cholesterol level (Chronic) Elevated blood pressure reading in office without diagnosis of hypertension (Chronic) Body mass index [BMI] 60.0-69.9, adult (Chronic) Financial insecurity (Chronic) Headache (Chronic) Hypothyroidism (Chronic) Hordeolum (Chronic) Chronic insomnia (Chronic) Heart palpitations (Chronic) Balance problem (Chronic) Lower extremity weakness (Chronic) Class 3 obesity (Chronic) Vitamin D deficiency (Chronic) Venous insufficiency (Chronic) 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) Obstructive sleep apnea (Chronic) Spinal stenosis of lumbar region (Chronic) Gout (Chronic) Genetic torsion dystonia (Chronic) Pes planus of both feet (Chronic) MARIN (nonalcoholic steatohepatitis) (Chronic) Essential hypertension, benign (Chronic) Degenerative joint disease (DJD) of lumbar spine (Chronic) Degeneration of cervical intervertebral disc (Chronic) Screening for colorectal cancer (Chronic) Cervical stenosis of spinal canal (Chronic) Intertriginous candidiasis (Chronic) Blurred vision (Chronic) Benign prostatic hyperplasia with lower urinary tract symptoms (Chronic) Anxiety and depression (Chronic) Asthma (Chronic) Left ankle pain (Chronic) Rotator cuff tendinitis (Chronic) Back spasm (Chronic) Medical History Medical History Abscess of right leg Cervical vertebral fracture History of diverticulitis History of thyroid cancer History of thyroidectomy + [place], 2014, T2N0 Surgical History Surgical History H/O thyroidectomy Has had two surgeries r/t thyroid cancer Family History Family History Father Heart disease CAD (coronary artery disease) Heart attack HLP (hyperkeratosis lenticularis perstans) Mother Pancreatic cancer Thyroid cancer Sister Dystonia Social History Social History (Updated 05/08/25 @ 14:02 by Dionne Bynum MD) Smoking Status: Never smoker Second hand tobacco smoke exposure: No Do you dip or chew tobacco?: No Do you vape?: No Living arrangement: At home Marital Status: Single Living Condition: With family Support Person: Yes Physical Activity: None Level: Assisted Home Mobility Equipment: Cane Do you feel safe in your home environment?: Yes History of physical, verbal, emotional, or financial abuse?: No ETOH Use: None Substance Use: cannabis (any form) POLST Patient has POLST: No Review of Systems Status of ROS: 10 or more systems reviewed and unremarkable except as noted in history and below Exam Exam Vital Signs: Vital Signs x48h Temp Pulse Resp BP Pulse Ox 05/21/25 17:00 117/71 05/21/25 16:58 94/38 L 05/21/25 15:58 37.0 C 76 16 96/44 L 95 05/21/25 11:00 36.7 C 89 16 98/60 95 middle aged man lying in bed, NAD, sclera anicteric, MM dry LCTAB, nonlabored RRR, S1S2, trace LE edema abd soft, tender LUQ and to a lesser degree in periumbilical region, no guarding, BS+ AAOx3, CN 2-12 intact, strength 5/5 UE and LE, normal tone, no tremor Conclusion/Plan Problem List (1) Diverticulitis of jejunum: Plan 1. GI bleed, melena, jejunal diverticulitis with likely microperforation, acute blood loss anemia: Melena suggests upper source. Beet intake and Fe supplements complicate picture a bit but stool has the appearance of melena and pt's hgb is dropping. Consider jejunal lesion vs other cause, including PUD, gastritis, AMV. BP dropped this afternoon to 94/38, HR 80s-90s. BP improved after 500 ml fluid bolus to 117/71. He had 2 more dark bloody stools (total of 4 melena episodes since approx noon today). Abd exam not acute. INR 1.5. I discussed the case with our surgery service and we came to the conclusion any intervention (EGD, bowel surgery) would be very high risk at this small hospital given his morbid obesity. Tachycardia/arrhythmia w/u underway also may complicate any anesthesia need. Hgb dropped 13.1->10.5. - iv ppi BID - ordered 2 units PRBCs- risks and benefits explained and pt agrees - ordered CT angio to evaluate for active extravasation - pip-tazo - given 10 mg vitamin K po given mildly elevated INR. Give 2 units FFP. - H/H q 4 hrs - analgesics and antiemetics prn - NPO - avoid NSAIDs and anticoagulants - I discussed the case with GI Dr. Aldridge, surgery Dr. Hueber, ICU Dr. Alexander, and hospitalist Dr. Bragg at [facility]. The pt has been accepted for transfer to the hospitalist service with various consultants. 2. hypothyroidism: - cont home synthroid 3. tachycardia/palpitations, r/o arrhythmia: reportedly had cheek monitor recently outpt. - obtian out records, consider cardiology consult dvt ppx: SCDs Dispo: transfer to [facility] Pt agress with plan of care. Lab Results Lab results reviewed: Yes 05/21/25 14:05 05/21/25 06:43
--- NOTE | 2025-05-21 19:32 | Discharge Summary ---
Discharge Summary Admit Date: 05/21/25 Discharge Date: 05/21/25 Discharging Provider: Edilberto Doherty MD Code Status: Attempt Resuscitation DIAGNOSES Admission Diagnoses: GI bleed, melena jejunal diverticulitis with likely microperforation acute blood loss anemia hypothyroidism palpitations, tachycardia, r/o arrhythmia Discharge Diagnoses with Status of Each Condition: GI bleed, melena jejunal diverticulitis with likely microperforation acute blood loss anemia hypothyroidism palpitations, tachycardia, r/o arrhythmia HPI History of Present Illness: 54 yo M with pmhx of diverticulitis x 1 in 2022, PUD requiring transfusion when he was 17 yo, hemorrhoids, Fe def anemia, thyroid ca s/p resection, now hypothyroidism, IBS, HTN, constipation, monoclonal gammopathy (planning bone marrow biopsy), intermittent palpiatations (recent cheek monitor, cardiology eval pending) presenting with abdominal pain. Notes pain started last night acutely after eating tacos. Located diffusely in periumbilical region and LUQ. Pt states he has been constipated x 3 days. No n/v. He makes juice with beets, watermelon, and pineapple which he has been drinking daily the past 3-4 days. Also takes Fe supplements every other day. Never had colonoscopy. In the ED he was given pip-tazo and ketorolac. Upon arrival to the floor he had 2 large melanotic stools. He denies etoh and other drug use. No NSAIDs. Not on blood thinners. Notes his hemorrhoids bleed occasionally. HOSPITAL COURSE Hospital Course: 1. GI bleed, melena, jejunal diverticulitis with likely microperforation, acute blood loss anemia: Melena suggests upper source. Beet intake and Fe supplements complicate picture a bit but stool has the appearance of melena and pt's hgb is dropping. Consider jejunal lesion vs other cause, including PUD, gastritis, AMV. BP dropped this afternoon to 94/38, HR 80s-90s. BP improved after 500 ml fluid bolus to 117/71. He had 2 more dark bloody stools (total of 4 melena episodes since approx noon today). Abd exam not acute. INR 1.5. I discussed the case with our surgery service and we came to the conclusion any intervention (EGD, bowel surgery) would be very high risk at this small hospital given his morbid obesity. Tachycardia/arrhythmia w/u underway also may complicate any anesthesia need. Hgb dropped 13.1->10.5. - iv ppi BID - ordered 2 units PRBCs- risks and benefits explained and pt agrees - ordered CT angio to evaluate for active extravasation - pip-tazo - given 10 mg vitamin K po given mildly elevated INR. Give 2 units FFP. - H/H q 4 hrs - analgesics and antiemetics prn - NPO - avoid NSAIDs and anticoagulants - I discussed the case with GI Dr. Aldridge, surgery Dr. Gaxiola, ICU Dr. Alexander, and hospitalist Dr. Bragg at [facility]. The pt has been accepted for transfer to the hospitalist service with various consultants. 2. hypothyroidism: - cont home synthroid 3. tachycardia/palpitations, r/o arrhythmia: reportedly had cheek monitor recently outpt. - obtian out records, consider cardiology consult dvt ppx: SCDs Dispo: transfer to [facility] Pt agress with plan of care. Full code ALLERGIES Allergies Allergy/AdvReac Type Severity Reaction Status Date / Time hydrocodone Allergy Severe Nausea, Verified 04/15/25 14:58 sweating morphine Allergy Severe Nausea, Verified 04/15/25 14:58 sweating oxycodone Allergy Severe Nausea, Verified 04/15/25 14:58 sweating MEDICATIONS Ambulatory Orders Medication Instructions Recorded Confirmed omega 2-six-eoa-fish oil 1,000 mg 1 cap PO DAILY 08/2605/21/25 (120 mg-180 mg) capsule zinc sulfate 25 mg zinc (110 mg) 25 mg PO DAILY 05/21/25 tablet (Orazinc) levothyroxine 200 mcg tablet 200 mcg PO .COMPLEX 04/1505/21/25 (Levoxyl) levothyroxine 50 mcg tablet See Rx Instructions PO .CO MPLEX 05/21/25 05/21/25 PHYSICAL EXAM AT DISCHARGE Vital Signs: Vital Signs x48h Temp Pulse Resp BP Pulse Ox 05/21/25 17:00 117/71 05/21/25 16:58 94/38 L 05/21/25 15:58 37.0 C 76 16 96/44 L 95 middle aged man lying in bed, NAD, sclera anicteric, MM dry LCTAB, nonlabored RRR, S1S2, trace LE edema abd soft, tender LUQ and to a lesser degree in periumbilical region, no guarding, BS+ AAOx3, CN 2-12 intact, strength 5/5 UE and LE, normal tone, no tremor LABS 05/21/25 14:05 05/21/25 06:43 DIAGNOSTIC IMAGING Diagnostic Imaging Results Comments: 05/21/25 EXAM: [id number] CT/ABPEWO ([id number]) PROCEDURE: CT Abdomen/Pelvis WO INDICATIONS: diffuse abdominal pain, hx of diverticulitis TECHNIQUE: A CT scan of the abdomen and pelvis was performed without the use of intravenous contrast. Images were recorded and evaluated at appropriate window settings. Reformats: coronal and sagittal. For radiation dose reduction, the following was used: automated exposure control, adjustment of mA and/or kV according to patient size. COMPARISON: 03/27/2021. FINDINGS: Image quality: Diagnostic. Lower chest: Mild cardiomegaly. Extreme lung bases are clear. Liver: No contour-deforming mass. Gallbladder: No radiopaque stones or wall thickening. Biliary tree: No intrahepatic or extrahepatic dilation, accounting for age. Spleen: No splenomegaly. Pancreas: No pancreatic ductal dilation. Adrenals: No adrenal nodule. Kidneys and ureters: No hydronephrosis. No contour-deforming mass. Stomach, bowel and peritoneum: There is either a perforated loop of jejunum or there is simply intramural gas. Complete microperforation at the subjacent fat is suspected. Reference axial images 79-95 and coronal image 49 of series 7. Differential diagnosis includes perforated jejunal diverticulitis. There is a ileus pattern. Other jejunal loops did not have any wall thickening or intramural gas. Moderately advanced sigmoid diverticulosis without evidence of acute diverticulitis.. No pathologic free fluid. Lymph nodes: No central or retroperitoneal adenopathy. Vessels: No infrarenal aortic aneurysm. Reproductive organs: Unremarkable. Bladder: No abnormal bladder wall thickening. No calcified bladder stones. Pelvic lymph nodes: No adenopathy by size criteria. Bones: No aggressive osseous abnormality. Other: No significant ventral or inguinal hernia. IMPRESSION: There is either a perforated loop of jejunum or extensive intramural gas without perforation. Microperforation is suspected. Differential diagnosis includes perforated jejunal diverticulitis. Ileus pattern. Mild cardiomegaly Above discussed with Chandler Salcido MD at the time of dictation. Reviewed by: Jean Obregon MD on 05/21/2025 8:21 AM PDT Approved by: Jean Obregon MD on 05/21/2025 8:21 AM PDT TIME SPENT Time Spent in Discharge (Minutes): 60 Discharge Plan Discharge Patient Disposition: 02 Transfer Acute Care Hosp Condition: Serious Prescriptions: No Action levothyroxine 50 mcg tablet See Rx Instructions PO .COMPLEX Patient Comments: TAKE 1 TABLET BY MOUTH ONCE DAILY IN THE MORNING (BEFORE BREAKFAST) 4 DAYS PER WEEK Rx Instructions: TAKE 1 TABLET BY MOUTH ONCE DAILY IN THE MORNING (BEFORE BREAKFAST) 4 DAYS PER WEEK orally; Orazinc 25 mg zinc (110 mg) tablet 25 mg PO DAILY omega 1-rxi-vnu-fish oil 1,000 (120-180) mg capsule 1 cap PO DAILY levothyroxine [Levoxyl] 200 mcg tablet 200 mcg PO .COMPLEX Rx Instructions: 200 mcg orally monday-monday; and 400mcg sat-sun Print Language: Luxembourgish Stand Alone Forms: PCP List Report called to and time (if no answer, doc. time of each call attempted): 1800 Vitals documented within 30 minutes of discharge?: Yes
[2025-05-21] MEDS: CHERRY SYRUP 10 ML UDC PO ONE ×2 (19:56→19:57)
[2025-05-21] MEDS: PHYTONADIONE 10 MG/ML AMP PO ONE ×2 (19:56→20:06)
[2025-05-21 23:07] LABS: HCT - HEMATOCRIT 29.3 % (42.0-52.0); HGB - HEMOGLOBIN 9.2 g/dL (14.0-18.0)
--- NOTE | 2025-05-21 23:09 | XRAY Report ---
PROCEDURE: XR Chest for Line Placement INDICATIONS: PICC line placement TECHNIQUE: One view of the chest was acquired. COMPARISON: 02/16/2024. FINDINGS: Surgical changes and devices: Right central venous catheter with tip projecting over the superior vena cava. Lungs and pleura: No pleural effusions or pneumothorax. Possible interstitial prominence. No consolidation. Mediastinum: Mediastinal contours appear normal. Heart size is markedly enlarged. Bones and chest wall: No suspicious bony lesions. Overlying soft tissues appear unremarkable. IMPRESSION: 1.Right central venous catheter with tip projecting over the superior vena cava. 2.Heart is markedly enlarged with interstitial prominence, correlate for signs of pulmonary edema. Reviewed by: Nikita Varela MD on 05/21/2025 11:08 PM PDT Approved by: Nikita Varela MD on 05/21/2025 11:08 PM PDT Station ID: [id number]
--- NOTE | 2025-05-21 23:18 | ANESTHESIA PROCEDURE NOTE ---
Anesth Central Line Template Central Line Procedure Date: 05/21/25 Central Line Preparation: Consent Obtained, Time out completed, Ultrasound used and Sterile prep and drape Central line location: Right IJ Central line type: Triple lumen Central line catheter tip site resides: Atrium, right Central line aftercare: Chlorhexidine disc placed, Secured, Placement confirmed, No pneumothorax, No complications, Bundle checklist complete and Pt tolerated well
[2025-05-21] MEDS: SODIUM CHLORIDE FLUSH 0.9% 10 ML SYRINGE IVP PRN (23:19)
[2025-05-22] MEDS: FUROSEMIDE 20 MG/2 ML VIAL IVP PRN (02:54)
[2025-05-22] MEDS: LEVOTHYROXINE 100 MCG TABLET PO SCH (06:33)
[2025-05-22 08:30] LABS: HCT - HEMATOCRIT 30.5 % (42.0-52.0); HGB - HEMOGLOBIN 9.7 g/dL (14.0-18.0); MEAN PLATELET VOLUME 10.4 fL (7.4-11.4); NRBC ABSOLUTE COUNT (AUTO) 0.00 x10^3/uL; NUCLEATED RED BLOOD CELLS AUTO 0.0 /100WBC; PLT - PLATELET COUNT 178 10^3/uL (130-450); RED CELL DISTRIBUTION WIDTH 17.2 % (12.0-15.0)
[2025-05-22 08:40] LABS: INR 1.6 (0.8-1.2); PT - PROTHROMBIN TIME 17.7 secs (9.9-12.6)
[2025-05-22 08:53] LABS: BUN - BLOOD UREA NITROGEN 19.0 mg/dL (6-20); CARBON DIOXIDE - CO2 26.0 mmol/L (21-32); CREATININE 0.8 mg/dL (0.6-1.3); GFR - MDRD 100.0 (>89)
--- NOTE | 2025-05-22 09:55 | CT Report ---
PROCEDURE: 1. Noncontrast CT of the abdomen and pelvis. 2. CT Angio Abdomen/Pelvis INDICATIONS: GI bleed CONTRAST: OMNI 300, 100ML TECHNIQUE: After the administration of intravenous contrast, images were acquired from the diaphragm to the symphysis. Maximum-intensity projection (MIP) reformats were then acquired. For radiation dose reduction, the following was used: automated exposure control, adjustment of mA and/or kV according to patient size. COMPARISON: CT dated 05/21/2025 FINDINGS: Image quality: Partially degraded by motion artifact. VESSELS: Aorta: No evidence of aneurysm nor dissection. No significant stenosis. Splanchnic arteries: Renal arteries, Celiac trunk, superior and inferior mesenteric arteries appear patent. Pelvic arteries: Mild calcific stenosis of the common, internal, and external iliac arteries. CHEST: Lung bases and heart: Unremarkable. ABDOMEN: Liver: Diffusely decreased density without focal mass. Gallbladder and biliary tree: Normal in appearance. Spleen: No splenomegaly. Pancreas: No pancreatic ductal dilation. Adrenals: No adrenal nodule. Kidneys and ureters: No hydronephrosis. No renal cystic lesion which requires follow up. No solid mass. Bowel and peritoneum: No evidence of bowel obstruction. There is an extraluminal collection of gas, fluid, and debris/feces within the left hemiabdomen anteriorly adjacent to a thickened small bowel loop, measuring 70 mm transverse, as before. There is surrounding fat stranding as well as contained pne umoperitoneum. No evidence of delivery contrast extravasation into the bowel lumen to indicate active hemorrhage. Normal appendix. Lymph nodes: No central or retroperitoneal adenopathy. PELVIS Reproductive organs: Unremarkable. Bladder: No abnormal wall thickening, accounting for underdistension. Pelvic lymph nodes: No pelvic adenopathy by size criteria. Bones: No aggressive osseous abnormality. Other: No significant ventral or inguinal hernia. IMPRESSION: 1. Left hemiabdominal abscess containing fluid, gas, as well as debris/feces adjacent to small bowel, likely secondary to contained small bowel perforation. 2. No evidence of active hemorrhage. 3. Hepatic steatosis. Reviewed by: Kristi Babb MD on 05/22/2025 9:53 AM PDT Approved by: Kristi Babb MD on 05/22/2025 9:53 AM PDT Station ID: [id number]
[2025-05-22 11:34] VITALS: BP 134/66; TEMP 98.4; O2SAT 94
[2025-05-24] MEDS ORDERED: LEVOTHYROXINE 100 MCG TABLET PO SCH (07:00)
== END 2025-05-22 11:36 | disposition short-term general hospital (02) | DRG 378 ==
LOC: ED 06:01 → MS2 09:16 → ICU 21:13
PROVIDERS: ADMIT Student in an Organized Health Care Education/Training Program; ATTEND Student in an Organized Health Care Education/Training Program
DX: I10 Essential (primary) hypertension; E89.0 Postprocedural hypothyroidism; Z68.44 Body mass index [BMI] 60.0-69.9, adult; K64.9 Unspecified hemorrhoids; R00.2 Palpitations; K57.01 Diverticulitis of small intestine with perforation and abscess with bleeding; Z85.850 Personal history of malignant neoplasm of thyroid; R00.0 Tachycardia, unspecified; E66.813 Obesity, class 3; D62 Acute posthemorrhagic anemia; D47.2 Monoclonal gammopathy; Z79.899 Other long term (current) drug therapy; Z79.890 Hormone replacement therapy; K58.1 Irritable bowel syndrome with constipation